=== PATIENT | male | born 1940 ===

== ENCOUNTER 2018-03-09 15:36 | Inpatient (IN) | payer MEDICARE ==
[2018-03-09 15:36] VITALS: BMI 25.9
[2018-03-09] MEDS ORDERED: Sodium Chloride 0.9% 1,000 ML IV STA (16:56)
[2018-03-09] MEDS ORDERED: Piperacillin/Tazobact 3.375 GM in Sodium Chloride 0.9% 100 ML IVPB STA (16:57)
--- NOTE | 2018-03-09 17:05 | ED PDOC ---
HPI: Altered Mental Status Time Seen by Provider: 03/09/18 16:39 Chief Complaint (Nursing): Altered Mental Status Chief Complaint (Provider): Altered Mental Status History Per: EMS, Family () History/Exam Limitations: Clinical Condition Onset/Duration Of Symptoms: Mins (x30) Onset Of Symptoms: Cannot Confirm Onset Current Symptoms Are (Timing): Still Present Additional Complaint(s): 78 year old male with a history of hypertension, Alzheimers, dementia, afib and CHF (this obtained from computer record) presents to the ED with altered mental status. Patient is a poor historian due to medical conditions, history was obtained from . As per , patient insisted on going outside and fought about it until he left. Patient was found by EMS wandering outside and shivering approximately 30 minutes ago. Upon arrival, patient was found with dirty, foul smelling urine in Cheek bag and with a rectal temperature of 96. Patient has no signs of trauma. No further complaints. PMD: Dr. Alyce Fields Past Medical History Reviewed: Historical Data, Nursing Documentation, Vital Signs Vital Signs: Last Vital Signs Temp 96.5 F L 03/09/18 16:41 Pulse 99 H 03/09/18 15:40 Resp 16 03/09/18 15:40 BP 122/64 03/09/18 15:40 Pulse Ox - Medical History PMH: Anemia, Asthma, Atrial Fibrillation, Cardia Arrhythmia (A-FIB), CHF, COPD, HTN, Kidney Stones, Chronic Kidney Disease Other PMH: Prostate cancer 17 years ago - Surgical History Surgical History: Appendectomy, Endoscopy - Family History Family History: States: Unknown Family Hx - Immunization History Hx Tetanus Toxoid Vaccination: No Hx Influenza Vaccination: Yes Hx Pneumococcal Vaccination: Yes - Home Medications Home Medications: Ambulatory Orders Medication Instructions Recorded Allopurinol [Zyloprim] 100 mg PO DAILY 03/09/18 Donepezil [Aricept] 10 mg PO HS 03/09/18 Finasteride [Proscar] 5 mg PO DAILY 03/09/18 Furosemide [Lasix] 20 mg PO DAILY 03/09/18 Losartan [Cozaar] 100 mg PO DAILY 03/09/18 Metoprolol Succinate XL [Toprol XL] 25 mg PO DAILY 03/09/18 Spironolactone [Aldactone] 25 mg PO DAILY 03/09/18 Tamsulosin [Flomax] 0.4 mg PO HS 03/09/18 - Allergies Allergies/Adverse Reactions: Allergies Allergy/AdvReac Type Severity Reaction Status Date / Time No Known Allergies Allergy Verified 12/18/15 10:54 Review of Systems ROS Statement: Except As Marked, All Systems Reviewed And Found Negative Neurological: Positive for: Altered Mental Status Physical Exam - Reviewed Nursing Documentation Reviewed: Yes Vital Signs Reviewed: Yes - Physical Exam Appears: Positive for: No Acute Distress Head Exam: Positive for: ATRAUMATIC, NORMOCEPHALIC Skin: Positive for: Mottled (lower extremities and with hyperpigmentation to the left side of his face - appears chronic) Eye Exam: Positive for: Normal appearance, EOMI, PERRL ENT: Positive for: Normal ENT Inspection Neck: Positive for: Normal Cardiovascular/Chest: Positive for: Regular Rate, Rhythm Respiratory: Positive for: Normal Breath Sounds Gastrointestinal/Abdominal: Positive for: Normal Exam, Soft, Other (cheek w leg bag with dirty smelly urine). Negative for: Tenderness Extremity: Positive for: Normal ROM (moved all 4). Negative for: Pedal Edema, Deformity Neurologic/Psych: Positive for: Alert, Oriented (x1) - Laboratory Results Result Diagrams: 03/09/18 17:10 03/09/18 17:10 - ECG ECG Rhythm: Positive for: Atrial Fibrillation Rate: 88 Pulse Ox Interpretation: Normal - Radiology X-Ray: Read By Radiologist X-Ray Interpretation: No Acute Disease - Progress Condition: Re-examined (multiple times, pt improved somewhat with fluid and antibiotc resuscitation) - Core Measure Core Measure Indicators: Code Sepsis - Critical Care Total Time (In Min): 45 Medical Decision Making Medical Decision Making: Time: 1704 Initial Impression: Altered mental status; rule out sepsis, uti, pneumonia Initial Plan: --VBG --EKG --CMP --Magnesium --Phosphorus --CBC with differentials --PTT --Prothrombin time --CXR --NS --Vancomycin --Zosyn --Blood culture --Urine culture --[place] --UA Time: 1731 --Code sepsis activated. Patient is hypothermic with a lactic acid of 6.4, pt is treated w antibiotics for presumed UTI given cloudy and smelly urine. Time: 1753 --Labs demonstrate low sodium at 123 and elevated white blood cell count. Patient to be admitted to Telemetry for UTI and sepsis. Time: 1802 Chest x-ray: FINDINGS: LUNGS: No active pulmonary disease. PLEURA: No significant pleural effusion identified, no pneumothorax apparent. CARDIOVASCULAR: No radiographic findings to suggest acute or significant cardiovascular disease. Atherosclerotic calcifications identified primarily aortic arch. OSSEOUS STRUCTURES: No significant abnormalities. VISUALIZED UPPER ABDOMEN: Normal. OTHER FINDINGS: None. IMPRESSION: No active disease. Time: 1830 Patient was not given full complement of fluids as per Sepsis protocol due to patients history of CHF. Patients vitals and blood pressure are stable a tthis time. Patients temperature came up within normal range.bp stable. Time: 1839 --Case discussed with Dr. Tavares, who accepts patient for admission. (pts pcp dr fields ) Scribe Attestation: Documented by Marcy Espinoza, acting as a scribe for Jose R Montemayor. Provider Scribe Attestation: All medical record entries made by the Scribe were at my direction and personally dictated by me. I have reviewed the chart and agree that the record accurately reflects my personal performance of the history, physical exam, medical decision making, and the department course for this patient. I have also personally directed, reviewed, and agree with the discharge instructions and disposition. Disposition - Clinical Impression Clinical Impression: Altered mental status, Sepsis secondary to UTI - Patient ED Disposition Is Patient to be Admitted: Yes - Disposition Disposition Time: 18:40 Condition: SERIOUS
[2018-03-09 17:24] LABS: HEMOGLOBIN 13.3 g/dL (12.0-18.0); LYMPH # 0.1 K/uL (1.0-4.3); LYMPH % 0.8 % (20.0-40.0); MEAN CELL VOLUME 91.4 fl (80.0-94.0); MEAN CORPUSCULAR HEMOGLOBIN 30.3 pg (27.0-31.0); MEAN CORPUSCULAR HGB CONC 33.1 g/dL (33.0-37.0); MEAN PLATELET VOLUME 7.7 fl (7.2-11.7); MONO # 0.6 K/uL (0.0-0.8); MONO % 3.3 % (0.0-10.0); NEUT # 16.5 K/uL (1.8-7.0); NEUT % 95.9 % (50.0-75.0); PLATELET COUNT 285 K/uL (130-400); RBC 4.41 Mil/uL (4.40-5.90); RED CELL DISTRIBUTION WIDTH 13.8 % (11.5-14.5); WHITE BLOOD COUNT 17.2 K/uL (4.8-10.8)
[2018-03-09] MEDS ORDERED: Vancomycin 1 g Inj ONE (17:28)
[2018-03-09] MEDS ORDERED: Piperacillin/Tazobact 3.375 gm Inj IVPB ONE (17:28)
[2018-03-09 17:30] LABS: VENOUS BLOOD GAS BASE EXCESS -8.8 mmol/L (0.0-2.0); VENOUS BLOOD GAS PCO2 34 mmHg (40-60); VENOUS BLOOD GAS PO2 42 mm/Hg (30-55)
[2018-03-09 17:44] LABS: ALB/GLOB RATIO 0.9 (1.0-2.1); ALBUMIN 3.3 g/dL (3.5-5.0); ALT/SGPT 17 U/L (21-72); AST/SGOT 49 U/L (17-59); BLOOD UREA NITROGEN 30 mg/dl (9-20); CALCIUM 9.5 mg/dL (8.4-10.2); GFR NON-AFRICAN AMERICAN > 60
--- NOTE | 2018-03-09 18:06 | RAD ---
Date of service: 03/09/2018 HISTORY: Sepsis Patient COMPARISON: No prior. FINDINGS: LUNGS: No active pulmonary disease. PLEURA: No significant pleural effusion identified, no pneumothorax apparent. CARDIOVASCULAR: No radiographic findings to suggest acute or significant cardiovascular disease. Atherosclerotic calcifications identified primarily aortic arch. OSSEOUS STRUCTURES: No significant abnormalities. VISUALIZED UPPER ABDOMEN: Normal. OTHER FINDINGS: None. IMPRESSION: No active disease.
[2018-03-09 18:07] LABS: INR 1.3; PROTHROMBIN TIME 14.3 Seconds (9.8-13.1)
[2018-03-09 18:08] LABS: PARTIAL THROMBOPLASTIN TIME 28.5 Seconds (25.6-37.1)
[2018-03-09 18:25] LABS: URINE BACTERIA MANY (<OCC); URINE BILIRUBIN NEGATIVE (NEGATIVE); URINE BLOOD MODERATE (NEGATIVE); URINE CLARITY TURBID (Clear); URINE COLOR YELLOW (YELLOW); URINE GLUCOSE (UA) NEG (NEGATIVE); URINE LEUKOCYTE ESTERASE LARGE Leu/uL (Negative); URINE PROTEIN 100 mg/dL (NEGATIVE); WBC CLUMPS OCC /hpf
[2018-03-09 19:25] LABS: BANDS 4 % (0-2); HYPOCHROMIC SLIGHT; LYMPHOCYTE 3 % (20-50); MONOCYTE 5 % (0-10); NEUTROPHIL 88 % (42-75); PLATELET ESTIMATE NORMAL (NORMAL); TOTAL CELLS COUNTED 100
[2018-03-09 19:26] LABS: TOXIC GRANULATION PRESENT
--- NOTE | 2018-03-09 19:35 | CP.PCM.HP ---
<Speedy Denson - Last Filed: 03/09/18 20:22> History of Present Illness - History of Present Illness History of Present Illness: History obtained from prior visits due to patient's current AMS. 78 yo M with pmhx of Alzheimer's dementia, HTN, CHF (diastolic), Afib, nephrolithiasis, prostate cancer s/p brachytherapy, IgA nephropathy, and gout presents to the ED with AMS. He was found wandering on the streets. Unaware of person or place or time. Pt states he is at "[address]" and unaware of current building. PMD: Dr. Alyce Cole Surg: Appy Fam: none NKDA Present on Admission - Present on Admission Any Indicators Present on Admission: No Urinary Catheter: No Review of Systems - Review of Systems Systems not reviewed;Unavailable: Altered Mental Status Past Patient History - Infectious Disease Hx of Infectious Diseases: None - Past Medical History & Family History Past Medical History?: Yes - Past Social History Smoking Status: Never Smoked Home Situation {Lives}: With Family - CARDIAC Hx Atrial Fibrillation: Yes Hx Cardia Arrhythmia: Yes (A-FIB) Hx Congestive Heart Failure: Yes Hx Hypertension: Yes - PULMONARY Hx Asthma: Yes Hx Chronic Obstructive Pulmonary Disease (COPD): Yes - NEUROLOGICAL Hx Neurological Disorder: No - HEENT Hx HEENT Problems: Yes Hx Glaucoma: Yes Other/Comment: Wears eyeglasses for reading - RENAL Hx Chronic Kidney Disease: Yes Hx Kidney Stones: Yes - ENDOCRINE/METABOLIC Hx Endocrine Disorders: No - HEMATOLOGICAL/ONCOLOGICAL Hx Anemia: Yes - INTEGUMENTARY Hx Dermatological Problems: Yes Other/Comment: facial discoloration. patient states " rashaun" - MUSCULOSKELETAL/RHEUMATOLOGICAL Hx Musculoskeletal Disorders: Yes - GASTROINTESTINAL Hx Gastrointestinal Disorders: No - GENITOURINARY/GYNECOLOGICAL Hx Genitourinary Disorders: Yes Hx Prostate Cancer: Yes (h/o.12 years ago seed implants) - PSYCHIATRIC Hx Psychophysiologic Disorder: No Hx Substance Use: No - SURGICAL HISTORY Hx Appendectomy: Yes - ANESTHESIA Hx Anesthesia: Yes Hx Anesthesia Reactions: No Hx Malignant Hyperthermia: No Meds Allergies/Adverse Reactions: Allergies Allergy/AdvReac Type Severity Reaction Status Date / Time No Known Allergies Allergy Verified 12/18/15 10:54 Physical Exam - Constitutional Appears: Confused - Eye Exam Eye Exam: EOMI - ENT Exam ENT Exam: Mucous Membranes Moist - Respiratory Exam Respiratory Exam: Clear to Auscultation Bilateral, NORMAL BREATHING PATTERN. absent: Wheezes - Cardiovascular Exam Cardiovascular Exam: REGULAR RHYTHM, +S1, +S2 - GI/Abdominal Exam GI & Abdominal Exam: Normal Bowel Sounds, Soft. absent: Tenderness - Extremities Exam Extremities exam: Negative for: calf tenderness - Neurological Exam Neurological exam: Alert, Altered Results - Vital Signs Recent Vital Signs: Last Vital Signs Temp 97.5 F L 03/09/18 18:30 Pulse 88 03/09/18 19:31 Resp 19 03/09/18 18:30 BP 132/70 03/09/18 18:30 Pulse Ox 100 03/09/18 18:30 - Labs Result Diagrams: 03/09/18 17:10 03/09/18 17:10 Labs: Laboratory Results - last 24 hr 03/09/18 03/09/18 03/09/18 17:10 17:10 17:20 WBC 17.2 H RBC 4.41 Hgb 13.3 Hct 40.3 MCV 91.4 MCH 30.3 MCHC 33.1 RDW 13.8 Plt Count 285 MPV 7.7 Neut % (Auto) 95.9 H Lymph % (Auto) 0.8 L [place] % (Auto) 3.3 Eos % (Auto) 0.0 Baso % (Auto) 0.0 Neut # (Auto) 16.5 H Lymph # (Auto) 0.1 L [place] # (Auto) 0.6 Eos # (Auto) 0.0 Baso # (Auto) 0.0 Neutrophils % (Manual) 88 H Band Neutrophils % 4 H Lymphocytes % (Manual) 3 L Monocytes % (Manual) 5 Toxic Granulation Present Platelet Estimate Normal Hypochromasia (manual) Slight PT 14.3 H INR 1.3 APTT 28.5 pO2 VBG pH VBG pCO2 VBG HCO3 VBG Total CO2 VBG O2 Sat (Calc) VBG Base Excess VBG Potassium Glucose Lactate FiO2 Crit Value Called To Crit Value Called By Crit Value Read Back Blood Gas Notified Time Sodium 125 L Potassium 3.9 Chloride 97 L Carbon Dioxide 16 L Anion Gap 16 BUN 30 H Creatinine 1.1 Est GFR ( Amer) > 60 Est GFR (Non-Af Amer) > 60 Random Glucose 194 H Calcium 9.5 Phosphorus 4.8 H Magnesium 2.0 Total Bilirubin 1.2 AST 49 ALT 17 L Alkaline Phosphatase 111 Total Protein 7.3 Albumin 3.3 L Globulin 3.9 Albumin/Globulin Ratio 0.9 L Venous Blood Potassium Urine Color Urine Clarity Urine pH Ur Specific [place] Urine Protein Urine Glucose (UA) Urine Ketones Urine Blood Urine Nitrate Urine Bilirubin Urine Urobilinogen Ur Leukocyte Esterase Urine RBC (Auto) Urine WBC Clumps (Auto) Urine Microscopic WBC Urine Bacteria 03/09/18 03/09/18 17:20 17:26 WBC RBC Hgb Hct MCV MCH MCHC RDW Plt Count MPV Neut % (Auto) Lymph % (Auto) [place] % (Auto) Eos % (Auto) Baso % (Auto) Neut # (Auto) Lymph # (Auto) [place] # (Auto) Eos # (Auto) Baso # (Auto) Neutrophils % (Manual) Band Neutrophils % Lymphocytes % (Manual) Monocytes % (Manual) Toxic Granulation Platelet Estimate Hypochromasia (manual) PT INR APTT pO2 42 VBG pH 7.30 L VBG pCO2 34 L VBG HCO3 17.4 VBG Total CO2 17.7 L VBG O2 Sat (Calc) 74.5 H VBG Base Excess -8.8 L VBG Potassium 3.9 Glucose 196 H Lactate 6.4 H* FiO2 21.0 Crit Value Called To Jose R sherman md Crit Value Called By 6075 Crit Value Read Back Y Blood Gas Notified Time 1730 Sodium 128.0 L Potassium Chloride 98.0 Carbon Dioxide Anion Gap BUN Creatinine Est GFR ( Amer) Est GFR (Non-Af Amer) Random Glucose Calcium Phosphorus Magnesium Total Bilirubin AST ALT Alkaline Phosphatase Total Protein Albumin Globulin Albumin/Globulin Ratio Venous Blood Potassium 3.9 Urine Color Yellow Urine Clarity Turbid Urine pH 7.0 Ur Specific [place] 1.012 Urine Protein 100 Urine Glucose (UA) Neg Urine Ketones Negative Urine Blood Moderate Urine Nitrate Negative Urine Bilirubin Negative Urine Urobilinogen 2.0 Ur Leukocyte Esterase Large Urine RBC (Auto) 34 H Urine WBC Clumps (Auto) Occ H Urine Microscopic WBC 396 H Urine Bacteria Many H Assessment & Plan - Assessment and Plan (Free Text) Assessment: 78 yo M with pmhx of Alzheimer's dementia, HTN, CHF (diastolic), Afib, nephrolithiasis, prostate cancer s/p brachytherapy, IgA nephropathy and gout admitted for sepsis secondary to UTI. Plan: Sepsis Admit to tele radiation monitor s/p: Vanc/Zosyn WBC: 17.2 Lactate: 6.4 UA: RBC and WBC; Leuk esterase: large IVABX: Cefepime, Zosyn IVF: NS at 80 mls gentle hydration 2/2 CHF f/u VBG, Blood and urine culture f/u AM labs AMS CT HEAD: pending official Alzheimer's dementia Catheter inserted c/w home med f/u AM labs including TSH Hyponatremia Na: 125 IVF NS f/u am labs CHF c/w lasix Pro BNP 01/31/2018: 5210 HTN c/w losartan, metoprolol Gout c/w allopurinol Hx prostate cancer c/w finasteride, tamulosin Catheter insertion DVT prophylaxis Lovenox Case and plan d/w Dr. Chaitanya Denson MD PGY2 <Iggy Tavares D - Last Filed: 03/10/18 09:29> Results - Vital Signs Recent Vital Signs: Last Vital Signs Temp 97.5 F L 03/10/18 07:53 Pulse 65 03/10/18 07:53 Resp 18 03/10/18 07:53 BP 103/69 03/10/18 07:53 Pulse Ox 100 03/10/18 07:53 - Labs Result Diagrams: 03/10/18 04:25 03/10/18 04:25 Labs: Laboratory Results - last 24 hr 03/09/18 03/09/18 03/09/18 17:10 17:10 17:20 WBC 17.2 H RBC 4.41 Hgb 13.3 Hct 40.3 MCV 91.4 MCH 30.3 MCHC 33.1 RDW 13.8 Plt Count 285 MPV 7.7 Neut % (Auto) 95.9 H Lymph % (Auto) 0.8 L [place] % (Auto) 3.3 Eos % (Auto) 0.0 Baso % (Auto) 0.0 Neut # (Auto) 16.5 H Lymph # (Auto) 0.1 L [place] # (Auto) 0.6 Eos # (Auto) 0.0 Baso # (Auto) 0.0 Neutrophils % (Manual) 88 H Band Neutrophils % 4 H Lymphocytes % (Manual) 3 L Monocytes % (Manual) 5 Toxic Granulation Present Platelet Estimate Normal Large Platelets Hypochromasia (manual) Slight Poikilocytosis (manual Anisocytosis (manual) Ovalocytes [place] Cells PT 14.3 H INR 1.3 APTT 28.5 pO2 VBG pH VBG pCO2 VBG HCO3 VBG Total CO2 VBG O2 Sat (Calc) VBG Base Excess VBG Potassium Glucose Lactate FiO2 Crit Value Called To Crit Value Called By Crit Value Read Back Blood Gas Notified Time Sodium 125 L Potassium 3.9 Chloride 97 L Carbon Dioxide 16 L Anion Gap 16 BUN 30 H Creatinine 1.1 Est GFR ( Amer) > 60 Est GFR (Non-Af Amer) > 60 Random Glucose 194 H Calcium 9.5 Phosphorus 4.8 H Magnesium 2.0 Total Bilirubin 1.2 AST 49 ALT 17 L Alkaline Phosphatase 111 Total Protein 7.3 Albumin 3.3 L Globulin 3.9 Albumin/Globulin Ratio 0.9 L TSH 3rd Generation Venous Blood Potassium Urine Color Urine Clarity Urine pH Ur Specific [place] Urine Protein Urine Glucose (UA) Urine Ketones Urine Blood Urine Nitrate Urine Bilirubin Urine Urobilinogen Ur Leukocyte Esterase Urine RBC (Auto) Urine WBC Clumps (Auto) Urine Microscopic WBC Urine Bacteria 03/09/18 03/09/18 03/09/18 17:20 17:26 20:26 WBC RBC Hgb Hct MCV MCH MCHC RDW Plt Count MPV Neut % (Auto) Lymph % (Auto) [place] % (Auto) Eos % (Auto) Baso % (Auto) Neut # (Auto) Lymph # (Auto) [place] # (Auto) Eos # (Auto) Baso # (Auto) Neutrophils % (Manual) Band Neutrophils % Lymphocytes % (Manual) Monocytes % (Manual) Toxic Granulation Platelet Estimate Large Platelets Hypochromasia (manual) Poikilocytosis (manual Anisocytosis (manual) Ovalocytes [place] Cells PT INR APTT pO2 42 22 L VBG pH 7.30 L 7.34 VBG pCO2 34 L 39 L VBG HCO3 17.4 19.7 VBG Total CO2 17.7 L 22.2 VBG O2 Sat (Calc) 74.5 H 33.8 L VBG Base Excess -8.8 L -4.4 L VBG Potassium 3.9 4.1 Glucose 196 H 122 H Lactate 6.4 H* 2.2 H FiO2 21.0 21.0 Crit Value Called To Jose R sherman md Crit Value Called By 6075 Crit Value Read Back Y Blood Gas Notified Time 1730 Sodium 128.0 L 130.0 L Potassium Chloride 98.0 102.0 Carbon Dioxide Anion Gap BUN Creatinine Est GFR ( Amer) Est GFR (Non-Af Amer) Random Glucose Calcium Phosphorus Magnesium Total Bilirubin AST ALT Alkaline Phosphatase Total Protein Albumin Globulin Albumin/Globulin Ratio TSH 3rd Generation Venous Blood Potassium 3.9 4.1 Urine Color Yellow Urine Clarity Turbid Urine pH 7.0 Ur Specific [place] 1.012 Urine Protein 100 Urine Glucose (UA) Neg Urine Ketones Negative Urine Blood Moderate Urine Nitrate Negative Urine Bilirubin Negative Urine Urobilinogen 2.0 Ur Leukocyte Esterase Large Urine RBC (Auto) 34 H Urine WBC Clumps (Auto) Occ H Urine Microscopic WBC 396 H Urine Bacteria Many H 03/10/18 03/10/18 04:25 04:25 WBC 13.5 H RBC 4.03 L Hgb 12.5 Hct 36.5 MCV 90.6 MCH 30.9 MCHC 34.1 RDW 13.9 Plt Count 290 MPV 7.9 Neut % (Auto) 90.4 H Lymph % (Auto) 4.2 L [place] % (Auto) 5.1 Eos % (Auto) 0.1 Baso % (Auto) 0.2 Neut # (Auto) 12.2 H Lymph # (Auto) 0.6 L [place] # (Auto) 0.7 Eos # (Auto) 0.0 Baso # (Auto) 0.0 Neutrophils % (Manual) 91 H Band Neutrophils % Lymphocytes % (Manual) 5 L Monocytes % (Manual) 4 Toxic Granulation Platelet Estimate Normal Large Platelets Present Hypochromasia (manual) Poikilocytosis (manual Slight Anisocytosis (manual) Slight Ovalocytes Slight [place] Cells Slight PT INR APTT pO2 VBG pH VBG pCO2 VBG HCO3 VBG Total CO2 VBG O2 Sat (Calc) VBG Base Excess VBG Potassium Glucose Lactate FiO2 Crit Value Called To Crit Value Called By Crit Value Read Back Blood Gas Notified Time Sodium 134 Potassium 4.2 Chloride 106 Carbon Dioxide 22 Anion Gap 10 BUN 25 H Creatinine 1.0 Est GFR ( Amer) > 60 Est GFR (Non-Af Amer) > 60 Random Glucose 104 Calcium 8.9 Phosphorus Magnesium Total Bilirubin AST ALT Alkaline Phosphatase Total Protein Albumin Globulin Albumin/Globulin Ratio TSH 3rd Generation 0.85 Venous Blood Potassium Urine Color Urine Clarity Urine pH Ur Specific [place] Urine Protein Urine Glucose (UA) Urine Ketones Urine Blood Urine Nitrate Urine Bilirubin Urine Urobilinogen Ur Leukocyte Esterase Urine RBC (Auto) Urine WBC Clumps (Auto) Urine Microscopic WBC Urine Bacteria Attending/Attestation - Attestation I have personally seen and examined this patient.: Yes I have fully participated in the care of the patient.: Yes I have reviewed all pertinent clinical information: Yes Notes (Text): 03/10/18 09:28 Patient seen and examined with resident. Case discussed and agreed with assessment and plan of management.
[2018-03-09] MEDS: Sodium Chloride 0.9% 1,000 ML IV SCH (19:54)
[2018-03-09 20:30] LABS: VENOUS BLOOD GAS BASE EXCESS -4.4 mmol/L (0.0-2.0); VENOUS BLOOD GAS PCO2 39 mmHg (40-60); VENOUS BLOOD GAS PO2 22 mm/Hg (30-55); VENOUS BLOOD PH 7.34 (7.32-7.43)
[2018-03-09] MEDS ORDERED: Piperacillin/Tazobact 3.375 GM in Sodium Chloride 0.9% 100 ML IVPB SCH (22:00)
[2018-03-09] MEDS: Cefepime 1 GM in Sodium Chloride 0.9% 100 ML IVPB SCH (22:14)
[2018-03-10] MEDS: Piperacillin/Tazobact 3.375 GM in Sodium Chloride 0.9% 100 ML IVPB SCH ×2 (00:38→05:37)
[2018-03-10 05:52] LABS: BASO % 0.2 % (0.0-2.0); EOS % 0.1 % (0.0-4.0); HEMOGLOBIN 12.5 g/dL (12.0-18.0); LYMPH # 0.6 K/uL (1.0-4.3); LYMPH % 4.2 % (20.0-40.0); MEAN CELL VOLUME 90.6 fl (80.0-94.0); MEAN CORPUSCULAR HEMOGLOBIN 30.9 pg (27.0-31.0); MEAN CORPUSCULAR HGB CONC 34.1 g/dL (33.0-37.0); MEAN PLATELET VOLUME 7.9 fl (7.2-11.7); MONO # 0.7 K/uL (0.0-0.8); MONO % 5.1 % (0.0-10.0); NEUT # 12.2 K/uL (1.8-7.0); NEUT % 90.4 % (50.0-75.0); NRBC % 0.1 % (0.0-0.0); PLATELET COUNT 290 K/uL (130-400); RBC 4.03 Mil/uL (4.40-5.90); RED CELL DISTRIBUTION WIDTH 13.9 % (11.5-14.5); WHITE BLOOD COUNT 13.5 K/uL (4.8-10.8)
[2018-03-10 06:00] LABS: BLOOD UREA NITROGEN 25 mg/dl (9-20); CALCIUM 8.9 mg/dL (8.4-10.2); GFR NON-AFRICAN AMERICAN > 60
[2018-03-10 08:10] LABS: LYMPHOCYTE 5 % (20-50); MONOCYTE 4 % (0-10); NEUTROPHIL 91 % (42-75); PLATELET ESTIMATE NORMAL (NORMAL); TOTAL CELLS COUNTED 100
[2018-03-10 08:11] LABS: ANISOCYTOSIS SLIGHT; BURR CELLS SLIGHT; LARGE PLATELETS PRESENT; OVALOCYTES SLIGHT; POIKILOCYTOSIS SLIGHT
--- NOTE | 2018-03-10 09:46 | CP.PCM.PN ---
<Judie Phan - Last Filed: 03/10/18 10:49> Subjective - Date & Time of Evaluation Date of Evaluation: 03/10/18 Time of Evaluation: 08:45 - Subjective Subjective: Pt seen/evaluated at bedside, laying in bed without distress. Pt with reported baseline dementia, answering questions but nor appropriately. When asked "what happened yesterday," pt replies "nothing important." Knows he is in a hospital, but not which. Urine draining in cheek at bedside - blood tinged. Denies chest pain or SOB. Objective - Vital Signs/Intake and Output Vital Signs (last 24 hours): Temp Pulse Resp BP Pulse Ox 97.5 F L 65 18 103/69 100 03/10/18 07:53 03/10/18 07:53 03/10/18 07:53 03/10/18 07:53 03/10/18 07:53 Intake and Output: 03/10/18 03/10/18 06:59 18:59 Intake Total 1260 Output Total 2000 Balance -740 - Medications Medications: Current Medications Allopurinol (Zyloprim) 100 mg PO DAILY [facility] Donepezil HCl (Aricept) 10 mg PO HS [facility] Last Admin: 03/09/18 22:11 Dose: 10 mg Enoxaparin Sodium (Lovenox) 40 mg SC DAILY [facility]; Protocol Finasteride (Proscar) 5 mg PO DAILY [facility] Furosemide (Lasix) 20 mg PO DAILY [facility] Sodium Chloride (Sodium Chloride 0.9%) 1,000 mls @ 80 mls/hr IV .[id number] [facility] Last Admin: 03/09/18 19:54 Dose: 80 mls/hr Cefepime HCl 1 gm/ Sodium (Chloride) 100 mls @ 100 mls/hr IVPB Q12 [facility]; Protocol Last Admin: 03/09/18 22:14 Dose: 100 mls/hr Losartan Potassium (Cozaar) 100 mg PO DAILY [facility] Metoprolol Succinate (Toprol Xl) 25 mg PO DAILY [facility] Spironolactone (Aldactone) 25 mg PO DAILY [facility] Tamsulosin HCl (Flomax) 0.4 mg PO [facility] Last Admin: 03/09/18 22:44 Dose: 0.4 mg - Labs Labs: 03/10/18 04:25 03/10/18 04:25 PT 14.3 Seconds (9.8-13.1) H 03/09/18 17:20 INR 1.3 03/09/18 17:20 APTT 28.5 Seconds (25.6-37.1) 03/09/18 17:20 - Constitutional Appears: No Acute Distress - ENT Exam ENT Exam: Mucous Membranes Moist - Respiratory Exam Respiratory Exam: Clear to Ausculation Bilateral, NORMAL BREATHING PATTERN - Cardiovascular Exam Cardiovascular Exam: REGULAR RHYTHM, +S1, +S2 - GI/Abdominal Exam GI & Abdominal Exam: Soft, Normal Bowel Sounds - Extremities Exam Extremities Exam: absent: Calf Tenderness, Pedal Edema - Neurological Exam Neurological Exam: Alert. absent: Oriented x3 - Skin Skin Exam: Warm - Additional Findings Additional findings: + cheek with blood tinged urine Assessment and Plan - Assessment and Plan (Free Text) Assessment: 78 yo M with pmhx of Alzheimer's dementia, HTN, diastolic CHF, A-fib, nephrolithiasis, prostate cancer s/p brachytherapy, IgA nephropathy and gout admitted for sepsis secondary to UTI (met sepsis criteria with elevated lactate, WBC count, suspected source). UA showed RBC and WBC; large leuk esterase. Received 1 dose vancomycin and zosyn in ED; then started on cefepime; will need IV cefepime 1gm Q12 hrs x 7 days. Plan: Urinary Tract Infection, Sepsis - Leukocytosis improving, down to 13.5 from 17.2 on admission - Lactate improving, down to 2.2 from 6.4 on admission - UA: RBC and WBC; Leuk esterase: large - Currently day 2 of cefepime,1g IV Q12hrs ; will need IV cefepime 1gm Q12 hrs x 7 days - IVF: NS at 80 mls gentle hydration 2/2 CHF - F/u blood and urine cultures AMS, likely secondary to baseline dementia - CT head: pending official - Alzheimer's dementia - Continue with home med - TSH wnl Hyponatremia - Resolved on this am labs, Na 134 CHF - Continue with lasix - Pro BNP 01/31/2018: 5210 HTN - Well controlled - Continue with losartan, metoprolol Gout - Continue with allopurinol Hx prostate cancer - Continue with finasteride, tamulosin - Has catheder, changed in ED DVT prophylaxis - Hold lovenox due to hematuria, likely from traumatic cheek change - SCDs <Emy Parker - Last Filed: 03/10/18 16:08> Objective - Vital Signs/Intake and Output Vital Signs (last 24 hours): Temp Pulse Resp BP Pulse Ox 98.1 F 60 20 99/56 L 99 03/10/18 15:47 03/10/18 15:47 03/10/18 15:47 03/10/18 15:47 03/10/18 15:47 Intake and Output: 03/10/18 03/10/18 06:59 18:59 Intake Total 1260 Output Total 1999 Balance -740 - Medications Medications: Current Medications Allopurinol (Zyloprim) 100 mg PO DAILY [facility] Last Admin: 03/10/18 10:34 Dose: 100 mg Donepezil HCl (Aricept) 10 mg PO HS [facility] Last Admin: 03/09/18 22:11 Dose: 10 mg Enoxaparin Sodium (Lovenox) 40 mg SC DAILY [facility]; Protocol Last Admin: 03/10/18 11:17 Dose: Not Given Finasteride (Proscar) 5 mg PO DAILY [facility] Last Admin: 03/10/18 10:33 Dose: 5 mg Furosemide (Lasix) 20 mg PO DAILY [facility] Last Admin: 03/10/18 10:34 Dose: 20 mg Sodium Chloride (Sodium Chloride 0.9%) 1,000 mls @ 80 mls/hr IV .[id number] [facility] Last Admin: 03/09/18 19:54 Dose: 80 mls/hr Cefepime HCl 2 gm/ Sodium (Chloride) 100 mls @ 100 mls/hr IVPB Q12 [facility]; Protocol Losartan Potassium (Cozaar) 50 mg PO DAILY [facility] Metoprolol Succinate (Toprol Xl) 25 mg PO DAILY [facility] Last Admin: 03/10/18 10:33 Dose: Not Given Spironolactone (Aldactone) 25 mg PO DAILY [facility] Last Admin: 03/10/18 10:33 Dose: 25 mg Tamsulosin HCl (Flomax) 0.4 mg PO HS [facility] Last Admin: 03/09/18 22:44 Dose: 0.4 mg - Labs Labs: 03/10/18 04:25 03/10/18 04:25 PT 14.3 Seconds (9.8-13.1) H 03/09/18 17:20 INR 1.3 03/09/18 17:20 APTT 28.5 Seconds (25.6-37.1) 03/09/18 17:20 Attending/Attestation - Attestation I have personally seen and examined this patient.: Yes I have fully participated in the care of the patient.: Yes I have reviewed all pertinent clinical information, including history, physical exam and plan: Yes Notes (Text): Sepsis due to UTI - await cultures - increase Cefepime to 2 grams IVPB q 12 HTN - cont Toprol, Spirinolactone, Lasix , decrease Losartan due to low normal BP Discussed test results and treatment plan with and daughter who were at bedside
[2018-03-10] MEDS: Metoprolol Succinate 25 mg XL Tab PO SCH (10:33)
[2018-03-10] MEDS: Enoxaparin 40 mg Syringe SC SCH (11:17)
--- NOTE | 2018-03-10 12:30 | CT ---
Date of service: 03/09/2018 PROCEDURE: CT HEAD WITHOUT CONTRAST. HISTORY: sepsis COMPARISON: None available. TECHNIQUE: Axial computed tomography images were obtained through the head/brain without intravenous contrast. Radiation dose: Total exam DLP = 839.02 mGy-cm. This CT exam was performed using one or more of the following dose reduction techniques: Automated exposure control, adjustment of the mA and/or kV according to patient size, and/or use of iterative reconstruction technique. FINDINGS: HEMORRHAGE: No intracranial hemorrhage. BRAIN: Good corticomedullary differentiation is seen. Proportional, diffuse expansion of the ventriculosulcal and cisternal spaces is appreciated with white matter lucency compatible with diffuse cerebral atrophy and chronic microangiopathy. Lucencies identified at the inferior margins of the bilateral basal ganglia may reflect a left dilated perivascular space and a right chronic lacune though both findings could reflect dilated perivascular spaces. No suspicious extra-axial fluid collection is identified and the midline brain anatomy appears grossly nonfocal as imaged. There is no mass effect throughout. VENTRICLES: Unremarkable. No hydrocephalus. CALVARIUM: Unremarkable. PARANASAL SINUSES: Unremarkable as visualized. No significant inflammatory changes. MASTOID AIR CELLS: Unremarkable as visualized. No inflammatory changes. OTHER FINDINGS: None. IMPRESSION: No definite acute intracranial findings by standard CT criteria. Age-related degenerative findings are appreciated as discussed above and appear age-appropriate. Dilated perivascular spaces versus chronic lacunes are identified in the bilateral basal ganglia.
[2018-03-10] MEDS: Cefepime 1 GM in Sodium Chloride 0.9% 100 ML IVPB SCH (12:34)
[2018-03-10] MEDS: Sodium Chloride 0.9% 1,000 ML IV SCH ×2 (17:16→21:00)
--- NOTE | 2018-03-10 20:53 | CARD ---
APPROVED REPORT Date of service: 03/09/2018 EKG Measurement Heart [id number] <Conclusion> Atrial fibrillation ST & T wave abnormality, consider inferior ischemia ST & T wave abnormality, consider anterolateral ischemia Abnormal ECG
[2018-03-10] MEDS: Cefepime 2 GM in Sodium Chloride 0.9% 100 ML IVPB SCH (21:01)
[2018-03-11] MEDS: Sodium Chloride 0.9% 1,000 ML IV SCH ×2 (07:03→09:08)
[2018-03-11 07:14] LABS: BASO % 0.3 % (0.0-2.0); EOS % 0.1 % (0.0-4.0); HEMOGLOBIN 12.1 g/dL (12.0-18.0); LYMPH # 0.6 K/uL (1.0-4.3); MEAN CORPUSCULAR HEMOGLOBIN 30.7 pg (27.0-31.0); MEAN CORPUSCULAR HGB CONC 33.8 g/dL (33.0-37.0); MEAN PLATELET VOLUME 7.4 fl (7.2-11.7); MONO # 0.6 K/uL (0.0-0.8); NEUT # 10.5 K/uL (1.8-7.0); NEUT % 89.6 % (50.0-75.0); RBC 3.94 Mil/uL (4.40-5.90); WHITE BLOOD COUNT 11.7 K/uL (4.8-10.8)
[2018-03-11 07:50] LABS: BLOOD UREA NITROGEN 20 mg/dl (9-20); CALCIUM 8.5 mg/dL (8.4-10.2); GFR NON-AFRICAN AMERICAN > 60
--- NOTE | 2018-03-11 08:55 | CP.PCM.PN ---
<KitgiaseveroNarayana - Last Filed: 03/11/18 08:55> Subjective - Date & Time of Evaluation Date of Evaluation: 03/11/18 Time of Evaluation: 08:25 - Subjective Subjective: Pt seen/examined at bedside this am; no acute events overnight; hematuria resolving as urine is more donna colored now. Pt remains at baseline level of mentation, alert, oriented x2. Objective - Vital Signs/Intake and Output Vital Signs (last 24 hours): Temp Pulse Resp BP Pulse Ox 97.4 F L 66 18 133/78 99 03/11/18 08:11 03/11/18 08:11 03/11/18 08:11 03/11/18 08:11 03/11/18 08:11 Intake and Output: 03/11/18 03/11/18 06:59 18:59 Output Total 1200 Balance -1200 - Medications Medications: Current Medications Allopurinol (Zyloprim) 100 mg PO DAILY [facility] Last Admin: 03/10/18 10:34 Dose: 100 mg Donepezil HCl (Aricept) 10 mg PO [facility] Last Admin: 03/10/18 21:02 Dose: 10 mg Enoxaparin Sodium (Lovenox) 40 mg SC DAILY [facility]; Protocol Last Admin: 03/10/18 11:17 Dose: Not Given Finasteride (Proscar) 5 mg PO DAILY [facility] Last Admin: 03/10/18 10:33 Dose: 5 mg Furosemide (Lasix) 20 mg PO DAILY [facility] Last Admin: 03/10/18 10:34 Dose: 20 mg Sodium Chloride (Sodium Chloride 0.9%) 1,000 mls @ 80 mls/hr IV .[id number] [facility] Last Admin: 03/11/18 07:03 Dose: 80 mls/hr Cefepime HCl 2 gm/ Sodium (Chloride) 100 mls @ 100 mls/hr IVPB Q12 [facility]; Protocol Last Admin: 03/10/18 21:01 Dose: 100 mls/hr Losartan Potassium (Cozaar) 50 mg PO DAILY [facility] Metoprolol Succinate (Toprol Xl) 25 mg PO DAILY [facility] Last Admin: 03/10/18 10:33 Dose: Not Given Spironolactone (Aldactone) 25 mg PO DAILY [facility] Last Admin: 03/10/18 10:33 Dose: 25 mg Tamsulosin HCl (Flomax) 0.4 mg PO [facility] Last Admin: 03/10/18 21:02 Dose: 0.4 mg - Labs Labs: 03/11/18 04:00 03/11/18 06:45 PT 14.3 Seconds (9.8-13.1) H 03/09/18 17:20 INR 1.3 03/09/18 17:20 APTT 28.5 Seconds (25.6-37.1) 03/09/18 17:20 - Constitutional Appears: No Acute Distress - Respiratory Exam Respiratory Exam: Clear to Ausculation Bilateral, NORMAL BREATHING PATTERN - Cardiovascular Exam Cardiovascular Exam: REGULAR RHYTHM, +S1, +S2 - GI/Abdominal Exam GI & Abdominal Exam: Soft - Extremities Exam Extremities Exam: absent: Calf Tenderness, Pedal Edema - Neurological Exam Neurological Exam: Alert - Skin Skin Exam: Dry, Warm - Additional Findings Additional findings: + cheek w/ dark donna urine Assessment and Plan - Assessment and Plan (Free Text) Assessment: 78 yo M with pmhx of Alzheimer's dementia, HTN, diastolic CHF, A-fib, nephrolithiasis, prostate cancer s/p brachytherapy, IgA nephropathy and gout admitted for sepsis secondary to UTI (met sepsis criteria with elevated lactate, WBC count, suspected source). UA showed RBC and WBC; large leuk esterase - pending final urine culture. CT head: No definite acute intracranial findings by standard CT criteria. Age- related degenerative findings are appreciated as discussed above and appear age- appropriate. Dilated patrizia-vascular spaces versus chronic lacunes in bilateral basal ganglia. Received 1 dose vancomycin and zosyn in ED; then started on IV cefepime; dose increased to 2 gm Q12. Plan: Urinary Tract Infection, Sepsis - Leukocytosis improving, down to 11.7 from 17.2 on admission - UA: RBC and WBC; Leuk esterase: large ; pending final urine culture - Currently day 3 of cefepime; dose changed to 2g IV Q12hrs from 1 g Q12hrs - IVF: NS at 80 mls gentle hydration 2/2 CHF - F/u blood and urine cultures AMS, likely secondary to baseline dementia - CT head - no definite acute findings; age related changes - Alzheimer's dementia - Continue with home med - TSH wnl CHF - Continue with lasix - Pro BNP 01/31/2018: 5210 HTN - Well controlled - Continue with losartan, metoprolol, spironolactone Gout - Continue with allopurinol Hyponatremia - Resolved Hx prostate cancer - Continue with finasteride, tamulosin - Has catheder, changed in ED DVT prophylaxis - Resume lovenox - SCDs <Emy Parker - Last Filed: 03/11/18 14:49> Objective - Vital Signs/Intake and Output Vital Signs (last 24 hours): Temp Pulse Resp BP Pulse Ox 98.2 F 84 18 121/76 97 03/11/18 12:35 03/11/18 12:35 03/11/18 12:35 03/11/18 12:35 03/11/18 12:35 Intake and Output: 03/11/18 03/11/18 06:59 18:59 Output Total 1200 Balance -1200 - Medications Medications: Current Medications Allopurinol (Zyloprim) 100 mg PO DAILY [facility] Last Admin: 03/11/18 09:08 Dose: 100 mg Donepezil HCl (Aricept) 10 mg PO HS [facility] Last Admin: 03/10/18 21:02 Dose: 10 mg Enoxaparin Sodium (Lovenox) 40 mg SC DAILY [facility]; Protocol Last Admin: 03/10/18 11:17 Dose: Not Given Finasteride (Proscar) 5 mg PO DAILY [facility] Last Admin: 03/11/18 09:06 Dose: 5 mg Furosemide (Lasix) 20 mg PO DAILY [facility] Last Admin: 03/11/18 09:06 Dose: 20 mg Sodium Chloride (Sodium Chloride 0.9%) 1,000 mls @ 80 mls/hr IV .[id number] [facility] Last Admin: 03/11/18 09:08 Dose: 80 mls/hr Cefepime HCl 2 gm/ Sodium (Chloride) 100 mls @ 100 mls/hr IVPB Q12 [facility]; Protocol Last Admin: 03/11/18 09:11 Dose: 100 mls/hr Vancomycin HCl 1 gm/ Sodium (Chloride) 250 mls @ 166.667 mls/hr IVPB Q12 [facility]; Protocol Losartan Potassium (Cozaar) 50 mg PO DAILY [facility] Last Admin: 03/11/18 09:07 Dose: 50 mg Metoprolol Succinate (Toprol Xl) 25 mg PO DAILY [facility] Last Admin: 03/11/18 09:07 Dose: 25 mg Spironolactone (Aldactone) 25 mg PO DAILY [facility] Last Admin: 03/11/18 09:06 Dose: 25 mg Tamsulosin HCl (Flomax) 0.4 mg PO HS [facility] Last Admin: 03/10/18 21:02 Dose: 0.4 mg - Labs Labs: 03/11/18 04:00 03/11/18 06:45 PT 14.3 Seconds (9.8-13.1) H 03/09/18 17:20 INR 1.3 03/09/18 17:20 APTT 28.5 Seconds (25.6-37.1) 03/09/18 17:20 Attending/Attestation - Attestation I have personally seen and examined this patient.: Yes I have fully participated in the care of the patient.: Yes I have reviewed all pertinent clinical information, including history, physical exam and plan: Yes Notes (Text): Sepsis sec to UTI -Urine c/s : Staph coag negative - start IV Vanco - cont IV Cefepime for now - catheter changed - Blood c/s : neg so far Chronic CHF, systolic and diastolic dysfunction cont Lasix, Aldactone, Losartan, Toprol Dementia likely Alzheimer's cont Aricept Urinary Retention due to BPH - Pt has Cheek cath from home - changed on admission - has an appt to see his Urologist - Mike Mcgee on 03/23 - cont Proscar and Flomax
[2018-03-11] MEDS: Metoprolol Succinate 25 mg XL Tab PO SCH (09:07)
[2018-03-11] MEDS: Cefepime 2 GM in Sodium Chloride 0.9% 100 ML IVPB SCH ×2 (09:11→20:31)
[2018-03-12 08:07] VITALS: RESP 18
[2018-03-12 08:42] LABS: BASO % 0.3 % (0.0-2.0); EOS % 0.3 % (0.0-4.0); LYMPH # 0.5 K/uL (1.0-4.3); LYMPH % 4.1 % (20.0-40.0); MEAN CELL VOLUME 90.5 fl (80.0-94.0); MEAN CORPUSCULAR HGB CONC 34.3 g/dL (33.0-37.0); MEAN PLATELET VOLUME 7.6 fl (7.2-11.7); MONO # 0.5 K/uL (0.0-0.8); MONO % 4.4 % (0.0-10.0); NEUT # 10.3 K/uL (1.8-7.0); NEUT % 90.9 % (50.0-75.0); NRBC % 0.1 % (0.0-0.0); PLATELET COUNT 242 K/uL (130-400); RBC 3.88 Mil/uL (4.40-5.90); RED CELL DISTRIBUTION WIDTH 13.9 % (11.5-14.5); WHITE BLOOD COUNT 11.3 K/uL (4.8-10.8)
[2018-03-12] MEDS: Enoxaparin 40 mg Syringe SC SCH (09:01)
[2018-03-12] MEDS: Metoprolol Succinate 25 mg XL Tab PO SCH (09:04)
--- NOTE | 2018-03-12 09:11 | CP.PCM.DIS ---
Provider - Provider Date of Admission: 03/09/18 18:02 Attending physician: Iggy Tavares MD Primary care physician: Dr Alyce Mcleod Time Spent in preparation of Discharge (in minutes): 35 Diagnosis - Discharge Diagnosis (1) Sepsis secondary to UTI Status: Acute (2) Altered mental status Status: Acute (3) Chronic congestive heart failure Status: Chronic (4) History of prostate cancer Status: Chronic (5) Atrial fibrillation Status: Chronic (6) Hypertension Status: Chronic Hospital Course - Lab Results Lab Results: Micro Results 03/09/18 20:20 Blood Blood Culture - Preliminary NO GROWTH AFTER 48 HOURS 03/09/18 17:10 Blood Blood Culture - Preliminary NO GROWTH AFTER 48 HOURS 03/09/18 17:20 Urine,Catheterized Urine Culture - Final Coagulase Neg Staphylococcus Most Recent Lab Values WBC 11.7 K/uL (4.8-10.8) H 03/11/18 04:00 RBC 3.94 Mil/uL (4.40-5.90) L 03/11/18 04:00 Hgb 12.1 g/dL (12.0-18.0) 03/11/18 04:00 Hct 35.9 % (35.0-51.0) 03/11/18 04:00 MCV 91.0 fl (80.0-94.0) 03/11/18 04:00 MCH 30.7 pg (27.0-31.0) 03/11/18 04:00 MCHC 33.8 g/dL (33.0-37.0) 03/11/18 04:00 RDW 14.0 % (11.5-14.5) 03/11/18 04:00 Plt Count 251 K/uL (130-400) 03/11/18 04:00 MPV 7.4 fl (7.2-11.7) 03/11/18 04:00 Neut % (Auto) 89.6 % (50.0-75.0) H 03/11/18 04:00 Lymph % (Auto) 5.0 % (20.0-40.0) L 03/11/18 04:00 [place] % (Auto) 5.0 % (0.0-10.0) 03/11/18 04:00 Eos % (Auto) 0.1 % (0.0-4.0) 03/11/18 04:00 Baso % (Auto) 0.3 % (0.0-2.0) 03/11/18 04:00 Neut # (Auto) 10.5 K/uL (1.8-7.0) H 03/11/18 04:00 Lymph # (Auto) 0.6 K/uL (1.0-4.3) L 03/11/18 04:00 [place] # (Auto) 0.6 K/uL (0.0-0.8) 03/11/18 04:00 Eos # (Auto) 0.0 K/uL (0.0-0.7) 03/11/18 04:00 Baso # (Auto) 0.0 K/uL (0.0-0.2) 03/11/18 04:00 Neutrophils % (Manual) 91 % (42-75) H 03/10/18 04:25 Band Neutrophils % 4 % (0-2) H 03/09/18 17:10 Lymphocytes % (Manual) 5 % (20-50) L 03/10/18 04:25 Monocytes % (Manual) 4 % (0-10) 03/10/18 04:25 Toxic Granulation Present 03/09/18 17:10 Platelet Estimate Normal (NORMAL) 03/10/18 04:25 Large Platelets Present 03/10/18 04:25 Hypochromasia (manual) Slight 03/09/18 17:10 Poikilocytosis (manual Slight 03/10/18 04:25 Anisocytosis (manual) Slight 03/10/18 04:25 Ovalocytes Slight 03/10/18 04:25 Robel Cells Slight 03/10/18 04:25 PT 14.3 Seconds (9.8-13.1) H 03/09/18 17:20 INR 1.3 03/09/18 17:20 APTT 28.5 Seconds (25.6-37.1) 03/09/18 17:20 pO2 22 mm/Hg (30-55) L 03/09/18 20:26 VBG pH 7.34 (7.32-7.43) 03/09/18 20:26 VBG pCO2 39 mmHg (40-60) L 03/09/18 20:26 VBG HCO3 19.7 mmol/L 03/09/18 20:26 VBG Total CO2 22.2 mmol/L (22-28) 03/09/18 20:26 VBG O2 Sat (Calc) 33.8 % (40-65) L 03/09/18 20:26 VBG Base Excess -4.4 mmol/L (0.0-2.0) L 03/09/18 20:26 VBG Potassium 4.1 mmol/L (3.6-5.2) 03/09/18 20:26 Sodium 130.0 mmol/L (132-148) L 03/09/18 20:26 Chloride 102.0 mmol/L (98-107) 03/09/18 20:26 Glucose 122 mg/dL (75-110) H 03/09/18 20:26 Lactate 2.2 mmol/L (0.7-2.1) H 03/09/18 20:26 FiO2 21.0 % 03/09/18 20:26 Crit Value Called To Jose R sherman md 03/09/18 17:26 Crit Value Called By 60Alexander 03/09/18 17:26 Crit Value Read Back Y 03/09/18 17:26 Blood Gas Notified Time 1730 03/09/18 17:26 Sodium 136 mmol/l (132-148) 03/11/18 06:45 Potassium 4.1 MMOL/L (3.6-5.0) 03/11/18 06:45 Chloride 109 mmol/L (98-107) H 03/11/18 06:45 Carbon Dioxide 24 mmol/L (22-30) 03/11/18 06:45 Anion Gap 7 (10-20) L 03/11/18 06:45 BUN 20 mg/dl (9-20) 03/11/18 06:45 Creatinine 0.9 mg/dl (0.8-1.5) 03/11/18 06:45 Est GFR ( Amer) > 60 03/11/18 06:45 Est GFR (Non-Af Amer) > 60 03/11/18 06:45 Random Glucose 103 mg/dL (75-110) 03/11/18 06:45 Lactic Acid 1.0 MMOL/L (0.7-2.1) 03/12/18 06:15 Calcium 8.5 mg/dL (8.4-10.2) 03/11/18 06:45 Phosphorus 4.8 mg/dl (2.5-4.5) H 03/09/18 17:10 Magnesium 2.0 MG/DL (1.6-2.3) 03/09/18 17:10 Total Bilirubin 1.2 mg/dl (0.2-1.3) 03/09/18 17:10 AST 49 U/L (17-59) 03/09/18 17:10 ALT 17 U/L (21-72) L 03/09/18 17:10 Alkaline Phosphatase 111 U/L (38-126) 03/09/18 17:10 Total Protein 7.3 G/DL (6.3-8.2) 03/09/18 17:10 Albumin 3.3 g/dL (3.5-5.0) L 03/09/18 17:10 Globulin 3.9 gm/dL (2.2-3.9) 03/09/18 17:10 Albumin/Globulin Ratio 0.9 (1.0-2.1) L 03/09/18 17:10 TSH 3rd Generation 0.85 mIU/ML (0.46-4.68) 03/10/18 04:25 Venous Blood Potassium 4.1 mmol/L (3.6-5.2) 03/09/18 20:26 Urine Color Yellow (YELLOW) 03/09/18 17:20 Urine Clarity Turbid (Clear) 03/09/18 17:20 Urine pH 7.0 (5.0-8.0) 03/09/18 17:20 Ur Specific [place] 1.012 (1.003-1.030) 03/09/18 17:20 Urine Protein 100 mg/dL (NEGATIVE) 03/09/18 17:20 Urine Glucose (UA) Neg mg/dL (NEGATIVE) 03/09/18 17:20 Urine Ketones Negative mg/dL (NEGATIVE) 03/09/18 17:20 Urine Blood Moderate (NEGATIVE) 03/09/18 17:20 Urine Nitrate Negative (NEGATIVE) 03/09/18 17:20 Urine Bilirubin Negative (NEGATIVE) 03/09/18 17:20 Urine Urobilinogen 2.0 mg/dL (0.2-1.0) 03/09/18 17:20 Ur Leukocyte Esterase Large Beth/uL (Negative) 01/10/19 17:20 Urine RBC (Auto) 34 /hpf (0-3) H 03/09/18 17:20 Urine WBC Clumps (Auto) Occ /hpf (NONE) H 03/09/18 17:20 Urine Microscopic WBC 396 /hpf (0-5) H 03/09/18 17:20 Urine Bacteria Many (<OCC) H 03/09/18 17:20 - Hospital Course Hospital Course: 78 y/o male with Hx of Alzheimer's Dementia , Urinary retention due to Prostatic Enlargement with chronic indwelling catheter , CHF, was brought in by EMS after he was found confused, wandering in the street on a cold winter day with no coat. Found to have leukocytosis and UTI. 1. Sepsis sec to UTI -Urine c/s : Staph coag negative sensitive to Oxacillin - received IV Cefepime and Vanco - catheter changed - Blood c/s : neg - leukocytosis resolved - will d/c pt home on PO Dicloxacillin 2. Chronic CHF, systolic and diastolic dysfunction cont Lasix, Aldactone, Losartan, Toprol 3. Dementia likely Alzheimer's cont Aricept 4. Urinary Retention due to BPH - Pt has Emanuel cath from home - Emanuel cath changed on admission - has an appt to see his Urologist - Dr Cota on 03/23 - cont Proscar and Flomax 5. Chronic A Fib, rate controlled - not candidate for anticoag due to hx of fall, dementia and hematuria - start ASA, cont Toprol Discharge Exam - Head Exam Head Exam: NORMOCEPHALIC - Eye Exam Eye Exam: EOMI, Normal appearance Pupil Exam: NORMAL ACCOMODATION - ENT Exam ENT Exam: Mucous Membranes Moist, Normal External Ear Exam - Neck Exam Neck exam: Full Rom - Respiratory Exam Respiratory Exam: NORMAL BREATHING PATTERN. absent: Respiratory Distress - Cardiovascular Exam Cardiovascular Exam: Irregular Rhythm, +S1, +S2 - GI/Abdominal Exam GI & Abdominal Exam: Normal Bowel Sounds, Soft. absent: Tenderness - Extremities Exam Extremities exam: full ROM, normal capillary refill, pedal pulses present - Back Exam Back exam: FULL ROM. absent: CVA tenderness (L), CVA tenderness (R) - Neurological Exam Neurological exam: Alert, Reflexes Normal Additional comments: oriented to person and place - Psychiatric Exam Psychiatric exam: Flat Affect - Skin Skin Exam: Dry, Normal Color, Warm Discharge Plan - Discharge Medications Prescriptions: Aspirin [Adult Aspirin] 81 mg PO DAILY #30 tablet. Dicloxacillin [Dynapen] 500 mg PO Q6 #28 cap - Follow Up Plan Condition: IMPROVED Disposition: HOME/ ROUTINE Instructions: Sepsis (DC), Sepsis (GEN) Additional Instructions: ff up with PMD Dr Mcleod carolyn keep Emanuel catheter until ff up with Urology Home RN ( education regarding Emanuel care), Home PT Keep appt with Dr Cota Referrals: Alyce Mcleod MD [Family Provider] - Candice Cota MD [Medical Doctor] -
[2018-03-12] MEDS ORDERED: Cefepime 2 GM in Sodium Chloride 0.9% 100 ML IVPB SCH (09:30)
[2018-03-12 11:38] LABS: LYMPHOCYTE 7 % (20-50); MONOCYTE 3 % (0-10); NEUTROPHIL 90 % (42-75); TOTAL CELLS COUNTED 100
[2018-03-12 11:39] LABS: PLATELET ESTIMATE NORMAL (NORMAL)
[2018-03-12 11:44] LABS: ANISOCYTOSIS SLIGHT
[2018-03-12 11:45] LABS: BURR CELLS SLIGHT; POIKILOCYTOSIS SLIGHT
[2018-03-12 12:18] VITALS: BP 132/84; PULSE 106; TEMP 97.9; O2SAT 97
--- NOTE | 2018-03-16 14:11 | PQF ---
PROVIDER RESPONSE TEXT: Sepsis due to Urinary Tract Infection ( Bladder) , likely related to Chronic Home Indwelling Catheter - Staph coag negative REVIEWER QUERY TEXT: Urosepsis WAS URINARY TRACT INFECTION RELATED TO PATIENT'S INDWELLING URINARY CATHETER? Urosepsis is documented in the Medical Record. Per [employer], urosepsis is an imp recise term. Please clarify in documentation the specific type of infection: -Bacturia -Urinary tract infection (specify specific location such as bladder, pyelonephritis, etc.) -Sepsis due to a urinary tract infection -Other The patient's Clinical Indicators include: PATIENT WITH CHRONIC INDWELLING URINARY CATHETER. URINE CULTURE FROM CATHETER STAPH COAG.NEGATIVE Query created by: Hodan Avalos on 03/14/2018 1:44 PM Electronically signed by: Emy Parker MD 03/16/2018 2:08 PM
--- NOTE | 2018-03-16 14:11 | PQF ---
PROVIDER RESPONSE TEXT: No anemia REVIEWER QUERY TEXT: Anemia Type COULD PATIENT'S ANEMIA BE CAUSED FROM CKD. PLEASE CLARIFY THE TYPE OF ANEMIA. Anemia is documented in the Medical Record. Please specify the cause (includes suspected or probable cause) Such as: -- Due to acute blood loss -- Due to chronic blood loss -- Due to iron deficiency -- Due to postoperative blood loss -- Due to chronic disease -- Other, please specify The patient's Clinical Indicators include: XXX Query created by: Hodan Avalos on 03/14/2018 1:33 PM Electronically signed by: Emy Parker MD 03/16/2018 2:08 PM
--- NOTE | 2018-03-16 14:11 | PQF ---
PROVIDER RESPONSE TEXT: CKD Stage II REVIEWER QUERY TEXT: Kidney Disease, Chronic CKD Stage COULD YOU PLEASE CLARIFY THE STAGE OF CKD. Chronic Kidney Disease (CKD) is documented in the Medical Record. Please specify the disease stage ( includes probable or suspected) Such as: -- Chronic kidney disease Stage 1 -- Chronic kidney disease Stage 2 -- Chronic kidney disease Stage 3 -- Chronic kidney disease Stage 4 -- Chronic kidney disease Stage 5 -- Chronic kidney disease Stage 5, requiring dialysis -- End Stage Renal Disease -- Other, please specify Stages are defined by the [employer] as follows: CKD Stage I GFR >= 90 ml / min per 1.73 m2 and persistent albuminuria CKD Stage 2 GFR between 60 and 89 with persistent albuminuria CKD Stage 3 GFR between 30 and 59 CKD Stage 4 GFR between 15 and 29 CKD Stage 5 GFR between <15 or End Stage Renal Disease The patient's Clinical Indicators include: EMERGENCY ROOM DOCUMENTS CKD Query created by: Hodan Avalos on 03/14/2018 1:36 PM Electronically signed by: Emy Parker MD 03/16/2018 2:08 PM
== END 2018-03-12 16:10 | disposition home or self-care (01) | DRG 698 ==
LOC: H.ER 15:36 → H.ERHOLD 18:02 → H.TEL 21:03
DX: T83.511A Infection and inflammatory reaction due to indwelling urethral catheter, initial encounter (principal); A41.1 Sepsis due to other specified staphylococcus; I13.0 Hypertensive heart and chronic kidney disease with heart failure and stage 1 through stage 4 chronic kidney disease, or unspecified chronic kidney disease; I50.42 Chronic combined systolic (congestive) and diastolic (congestive) heart failure; N39.0 Urinary tract infection, site not specified; N18.2 Chronic kidney disease, stage 2 (mild); F02.80 Dementia in other diseases classified elsewhere, unspecified severity, without behavioral disturbance, psychotic disturbance, mood disturbance, and anxiety; G30.9 Alzheimer's disease, unspecified; H40.9 Unspecified glaucoma; I48.2 Chronic atrial fibrillation; J44.9 Chronic obstructive pulmonary disease, unspecified; M10.9 Gout, unspecified; R31.9 Hematuria, unspecified; Y84.6 Urinary catheterization as the cause of abnormal reaction of the patient, or of later complication, without mention of misadventure at the time of the procedure; Y92.239 Unspecified place in hospital as the place of occurrence of the external cause; N40.1 Benign prostatic hyperplasia with lower urinary tract symptoms; R33.8 Other retention of urine; Z85.46 Personal history of malignant neoplasm of prostate; Z87.442 Personal history of urinary calculi; Z90.49 Acquired absence of other specified parts of digestive tract; Z91.83 Wandering in diseases classified elsewhere; Q82.5 Congenital non-neoplastic nevus; Z79.899 Other long term (current) drug therapy

== ENCOUNTER 2018-03-15 22:10 | Observation (INO) | payer MEDICAID, MEDICARE ==
[2018-03-15 22:10] VITALS: BMI 25.9
[2018-03-15] MEDS ORDERED: Morphine 4 MG/ML VIAL IVP STA (23:02)
[2018-03-15] MEDS ORDERED: Morphine 4 MG/ML VIAL ONE (23:05)
[2018-03-15 23:24] LABS: BASO # 0.1 K/uL (0.0-0.2); EOS # 0.1 K/uL (0.0-0.7); EOS % 0.7 % (0.0-4.0); HEMOGLOBIN 12.6 g/dL (12.0-18.0); LYMPH # 0.5 K/uL (1.0-4.3); LYMPH % 4.3 % (20.0-40.0); MEAN CORPUSCULAR HEMOGLOBIN 30.5 pg (27.0-31.0); MEAN CORPUSCULAR HGB CONC 33.5 g/dL (33.0-37.0); MEAN PLATELET VOLUME 7.1 fl (7.2-11.7); MONO # 0.6 K/uL (0.0-0.8); MONO % 4.6 % (0.0-10.0); NEUT # 10.6 K/uL (1.8-7.0); NEUT % 89.4 % (50.0-75.0); PLATELET COUNT 250 K/uL (130-400); RBC 4.14 Mil/uL (4.40-5.90); WHITE BLOOD COUNT 11.9 K/uL (4.8-10.8)
[2018-03-15 23:34] LABS: URINE AMORPHOUS SEDIMENT RARE /ul (<OCC); URINE BACTERIA FEW (<OCC); URINE BILIRUBIN NEGATIVE (NEGATIVE); URINE BLOOD LARGE (NEGATIVE); URINE CLARITY CLOUDY (Clear); URINE COLOR RED (YELLOW); URINE GLUCOSE (UA) NEG (NEGATIVE); URINE LEUKOCYTE ESTERASE MOD Leu/uL (Negative); URINE PROTEIN 100 mg/dL (NEGATIVE); URINE UROBILINOGEN 0.2-1.0 mg/dL (0.2-1.0); WBC CLUMPS MOD /hpf
[2018-03-15 23:36] LABS: ALB/GLOB RATIO 0.8 (1.0-2.1); ALBUMIN 2.7 g/dL (3.5-5.0); ALT/SGPT 34 U/L (21-72); AST/SGOT 32 U/L (17-59); BLOOD UREA NITROGEN 22 mg/dl (9-20); CALCIUM 8.7 mg/dL (8.4-10.2); GFR NON-AFRICAN AMERICAN > 60
--- NOTE | 2018-03-16 00:07 | ED PDOC ---
HPI: Male Pain Time Seen by Provider: 03/15/18 22:27 Chief Complaint (Nursing): Male Genitourinary Chief Complaint (Provider): Male Genitourinary History Per: Patient, EMS History/Exam Limitations: clinical condition (Dementia) Additional Complaint(s): 78 y/o male was brought to the ED by EMS due to lower abdominal pain and not draining urine from cheek. According to patient's daughter, patient was having problems with his cheek this morning. A home health aide came and changed it with very little urine drainage and sent patient to the ED. Patient was admitted to this hospital x1 week ago for UTI. However, patient was followed by Dr. Cota at [facility]. After speaking with Dr. Cota he recommended bladder US or irrigation. If any abnormalities are noticed will transfer patient to [facility]. Patient is complaining of lower abdominal pain however with his baseline dementia he is unable to provide more information. Past Medical History Reviewed: Historical Data, Nursing Documentation, Vital Signs Vital Signs: Last Vital Signs Temp 97.9 F 03/15/18 22:18 Pulse 86 03/15/18 22:18 Resp 16 03/15/18 22:18 BP 135/74 03/15/18 22:18 Pulse Ox 97 03/15/18 22:18 - Medical History PMH: Alzheimer's Disease, Anemia, Asthma, Atrial Fibrillation, Cardia Arrhythmia (A-FIB), CHF, COPD, Dementia, HTN, Kidney Stones, Chronic Kidney Disease - Surgical History Surgical History: Appendectomy, Endoscopy - Family History Family History: States: Unknown Family Hx - Immunization History Hx Tetanus Toxoid Vaccination: No Hx Influenza Vaccination: Yes Hx Pneumococcal Vaccination: Yes - Home Medications Home Medications: Ambulatory Orders Medication Instructions Recorded RX: Allopurinol [Zyloprim] 100 mg PO DAILY 03/09/18 RX: Donepezil [Aricept] 10 mg PO HS 03/09/18 RX: Finasteride [Proscar] 5 mg PO DAILY 03/09/18 RX: Furosemide [Lasix] 20 mg PO DAILY 03/09/18 RX: Losartan [Cozaar] 100 mg PO DAILY 03/09/18 RX: Metoprolol Succinate XL 25 mg PO DAILY 03/09/18 [Toprol XL] RX: Spironolactone [Aldactone] 25 mg PO DAILY 03/09/18 RX: Tamsulosin [Flomax] 0.4 mg PO HS 03/09/18 Aspirin [Adult Aspirin] 81 mg PO DAILY #30 tablet. 03/12/18 RX: Dicloxacillin [Dynapen] 500 mg PO Q6 #28 cap 03/12/18 - Allergies Allergies/Adverse Reactions: Allergies Allergy/AdvReac Type Severity Reaction Status Date / Time No Known Allergies Allergy Verified 03/15/18 22:16 Review of Systems Review Of Systems: ROS cannot be obtained secondary to pt's inabilty to answer questions. Physical Exam - Reviewed Nursing Documentation Reviewed: Yes Vital Signs Reviewed: Yes - Physical Exam Appears: Positive for: No Acute Distress (elderly appearing; confused but cooperative; answering appropriately but with minima information) Head Exam: Positive for: ATRAUMATIC, NORMOCEPHALIC Skin: Positive for: Normal Color, Warm, DRY Eye Exam: Positive for: Normal appearance, EOMI, PERRL Neck: Positive for: Normal, Painless ROM Cardiovascular/Chest: Positive for: Regular Rate, Rhythm. Negative for: Murmur Respiratory: Positive for: Normal Breath Sounds. Negative for: Respiratory Distress Gastrointestinal/Abdominal: Positive for: Tenderness (suprapubic ) Male Genital Exam: Positive for: normal genitalia (no testicular swelling), other (cheek in place, bulb inflated; approximately 30 ccs in cheek bag, dark- reddish appearing). Negative for: urethral discharge Extremity: Positive for: Normal ROM. Negative for: Pedal Edema, Deformity Neurologic/Psych: Positive for: Alert, Oriented. Negative for: Motor/Sensory Deficits - Laboratory Results Result Diagrams: 03/15/18 23:16 03/15/18 23:16 Lab Results: Total Bilirubin 0.8 mg/dl (0.2-1.3) 03/15/18 23:16 AST 32 U/L (17-59) 03/15/18 23:16 ALT 34 U/L (21-72) 03/15/18 23:16 Alkaline Phosphatase 99 U/L (38-126) 03/15/18 23:16 Total Protein 6.2 G/DL (6.3-8.2) L 03/15/18 23:16 Albumin 2.7 g/dL (3.5-5.0) L 03/15/18 23:16 Globulin 3.5 gm/dL (2.2-3.9) 03/15/18 23:16 Albumin/Globulin Ratio 0.8 (1.0-2.1) L 03/15/18 23:16 Urine Color Red (YELLOW) 03/15/18 23:16 Urine Clarity Cloudy (Clear) 03/15/18 23:16 Urine pH 6.0 (5.0-8.0) 03/15/18 23:16 Ur Specific [place] 1.008 (1.003-1.030) 03/15/18 23:16 Urine Protein 100 mg/dL (NEGATIVE) 03/15/18 23:16 Urine Glucose (UA) Neg mg/dL (NEGATIVE) 03/15/18 23:16 Urine Ketones Negative mg/dL (NEGATIVE) 03/15/18 23:16 Urine Blood Large (NEGATIVE) 03/15/18 23:16 Urine Nitrate Negative (NEGATIVE) 03/15/18 23:16 Urine Bilirubin Negative (NEGATIVE) 03/15/18 23:16 Urine Urobilinogen 0.2-1.0 mg/dL (0.2-1.0) 03/15/18 23:16 Ur Leukocyte Esterase Mod [place]/uL (Negative) 03/15/18 23:16 Urine RBC (Auto) 171 /hpf (0-3) H 03/15/18 23:16 Urine WBC Clumps (Auto) Mod /hpf (NONE) H 03/15/18 23:16 Urine Microscopic WBC 290 /hpf (0-5) H 03/15/18 23:16 Amorphous Sediment Rare /ul (<OCC) H 03/15/18 23:16 Urine Bacteria Few (<OCC) H 03/15/18 23:16 - ECG O2 Sat by Pulse Oximetry: 97 (RA) Pulse Ox Interpretation: Normal Medical Decision Making Medical Decision Making: Time: 22:43 Initial Impression: Workup for cheek outflow obstruction vs other bladder obstruction vs dehydration Initial Plan: * CMP * CBC w/ diff * Morphine 2 mg * UA * US Bladder Dr Cota Number: [phone] 00:42 Bladder US Findings: The prostate there is mildly enlarged measuring 46.5 cc in volume. No Cheek catheter is identified. Prevoid bladder volume is 311 cc. Postvoid residue is 311 cc. Nonvisualization of the right ureteral jet. Nonvisualization of the left ureteral jet. Impression: Urinary retention. 00:45 US shows cheek is not in place. RN took out and replaced with new cheek with immediate urine output of only 400cc. Patient with improvement of pain with morphine. Labs show elevated WBC count with UTI. Patient was on Cefepime a week ago in the hospital and discharged on diclocacillin. Daughter confirmed pt has been receiving outpatient antibiotics. Will start patient on Vancomycin and IV Hydration. Spoke with Dr. Cota who agrees that pt needs IV antibiotics and appears dehydrated due to low urine output. Urine and blood cultures sent. Gladis bowles to be admitted to medicine floor and discussed with Dr. Colon. Scribe Attestation: Documented by Jovany Thapa acting as a scribe for Rose Baker MD. Provider Scribe Attestation: All medical record entries made by the Scribe were at my direction and persona lly dictated by me. I have reviewed the chart and agree that the record accurately reflects my personal performance of the history, physical exam, medical decision making, and the department course for this patient. I have also personally directed, reviewed, and agree with the discharge instructions and disposition. Disposition - Clinical Impression Clinical Impression: Urinary tract infection, BPH (benign prostatic hyperplasia), Urinary retention - Patient ED Disposition Is Patient to be Admitted: Yes - Disposition Disposition Time: 00:50 Condition: GUARDED - POA Present On Arrival: Cath Associated UTI
[2018-03-16 00:27] LABS: LYMPHOCYTE 5 % (20-50); MONOCYTE 6 % (0-10); NEUTROPHIL 89 % (42-75); PLATELET ESTIMATE NORMAL (NORMAL); TOTAL CELLS COUNTED 100
[2018-03-16] MEDS ORDERED: Sodium Chloride 0.9% 1,000 ML IV STA (01:06)
[2018-03-16] MEDS ORDERED: Vancomycin 1 g Inj ONE (01:17)
--- NOTE | 2018-03-16 01:33 | CP.PCM.HP ---
History of Present Illness - History of Present Illness History of Present Illness: PMD: Dr Mcleod Chief Complaint: lower abdominal pain/ No Urine output The patient was seen and examined in the ED HPI: The Hx was obtained from the ED Staff and after review of the medical records as the patient has Dementia. This is an 78 years old male with hx of Alzheimer's dementia, CHF, Prostate cancer with chronic cheek catheterization, who was last admitted on 03/09/18 and discharged on 03/12/18 with dx of UTI with sepsis to copmplete 5 days of Dicloxacillin at home. He was sent to the ED because of lower abdominal pain and no drainage from the newly changed cheek catheter by the Home health Aide 5 hours prior. In the ED the Cheek was removed, Bladder US was done showing enlarged prostate and Urinary retention. A new cheek catheter was reinserted. PMH: Anemia; Alzheimer Dementia; COPD; HTN; A Fib; CDH with diastolic dysfunction; Nephrolithiasis; Gout; Prostate Cancer with brachytherapy; IgA nephropathy PSH: Appendectomy; Endoscopy SH: No illegal drug use; No smoking of cigarettes; Alcohol socially; Live with family FH: state: No known family hx Allergies: NKDA Medication: Reviewed - Medical History PMH: Alzheimer's Disease, Anemia, Asthma, Atrial Fibrillation, Cardia Arrhythmia (A-FIB), CHF, COPD, Dementia, HTN, Kidney Stones, Chronic Kidney Disease - Surgical History Surgical History: Appendectomy, Endoscopy - Family History Family History: States: Unknown Family Hx Present on Admission - Present on Admission Any Indicators Present on Admission: Yes History of DVT/PE: No History of Uncontrolled Diabetes: No Urinary Catheter: Yes Decubitus Ulcer Present: No Review of Systems - Review of Systems Systems not reviewed;Unavailable: Dementia Review of Systems: review of systems are limited because of the patient's dementia - Constitutional Constitutional: absent: Chills, Fever, Headache - EENT Eyes: absent: Blurred Vision, Floaters, Requires Corrective Lenses Ears: absent: Decreased Hearing, Tinnitus Nose/Mouth/Throat: absent: Epistaxis, Nasal Congestion - Cardiovascular Cardiovascular: absent: Chest Pain, Dyspnea - Respiratory Respiratory: absent: Cough, Dyspnea - Gastrointestinal Additional comments: Lower abdominal pain - Musculoskeletal Musculoskeletal: Arthralgias. absent: Joint Swelling - Integumentary Integumentary: absent: Pruritus, Rash - Neurological Neurological: Memory Loss. absent: Confusion, Dizziness - Psychiatric Psychiatric: absent: Depression - Endocrine Endocrine: absent: Palpitations - Hematologic/Lymphatic Hematologic: absent: Easy Bleeding, Easy Bruising Past Patient History - Infectious Disease Hx of Infectious Diseases: None - Past Medical History & Family History Past Medical History?: Yes - Past Social History Smoking Status: Never Smoked Chewing Tobacco Use: No Cigar Use: No Alcohol: Social Drugs: Denies, Inhalants Home Situation {Lives}: With Family - CARDIAC Hx Atrial Fibrillation: Yes Hx Cardia Arrhythmia: Yes (A-FIB) Hx Congestive Heart Failure: Yes Hx Hypertension: Yes - PULMONARY Hx Asthma: Yes Hx Chronic Obstructive Pulmonary Disease (COPD): Yes - NEUROLOGICAL Hx Alzheimer's Disease: Yes Hx Dementia: Yes - HEENT Hx HEENT Problems: Yes Other/Comment: Wears eyeglasses - RENAL Hx Chronic Kidney Disease: Yes Hx Kidney Stones: Yes - ENDOCRINE/METABOLIC Hx Endocrine Disorders: No - HEMATOLOGICAL/ONCOLOGICAL Hx Anemia: Yes - INTEGUMENTARY Hx Dermatological Problems: No - MUSCULOSKELETAL/RHEUMATOLOGICAL Hx Musculoskeletal Disorders: No Hx Falls: No - GASTROINTESTINAL Hx Gastrointestinal Disorders: No - GENITOURINARY/GYNECOLOGICAL Hx Genitourinary Disorders: Yes Hx Prostate Cancer: Yes Hx Prostate Problems: Yes - PSYCHIATRIC Hx Psychophysiologic Disorder: No Hx Substance Use: No - SURGICAL HISTORY Hx Appendectomy: Yes - ANESTHESIA Hx Anesthesia: Yes Hx Anesthesia Reactions: No Hx Malignant Hyperthermia: No Meds Allergies/Adverse Reactions: Allergies Allergy/AdvReac Type Severity Reaction Status Date / Time No Known Allergies Allergy Verified 03/15/18 22:16 Physical Exam - Constitutional Appears: No Acute Distress - Head Exam Head Exam: ATRAUMATIC, NORMAL INSPECTION, NORMOCEPHALIC - Eye Exam Eye Exam: EOMI, Normal appearance Pupil Exam: NORMAL ACCOMODATION, PERRL - ENT Exam ENT Exam: Mucous Membranes Dry, Normal Exam, Normal External Ear Exam - Neck Exam Neck exam: Positive for: Full Rom, Normal Inspection. Negative for: Lymphadenopathy, Tenderness - Respiratory Exam Respiratory Exam: Clear to Auscultation Bilateral. absent: Rales, Rhonchi, Wheezes - Cardiovascular Exam Cardiovascular Exam: Irregular Rhythm, RRR, +S1, +S2 - GI/Abdominal Exam GI & Abdominal Exam: Normal Bowel Sounds, Soft. absent: Mass, Organomegaly, Tenderness - Rectal Exam Rectal Exam: Deferred - Extremities Exam Extremities exam: Positive for: full ROM, normal inspection. Negative for: calf tenderness, pedal edema - Back Exam Back exam: NORMAL INSPECTION. absent: CVA tenderness (L), CVA tenderness (R) - Neurological Exam Neurological exam: Alert, CN II-XII Intact, Oriented x3, Reflexes Normal - Psychiatric Exam Psychiatric exam: Normal Affect, Normal Mood - Skin Skin Exam: Dry, Intact, Normal Color, Warm Results - Vital Signs Recent Vital Signs: Last Vital Signs Temp 97.9 F 03/15/18 22:18 Pulse 86 03/15/18 22:18 Resp 16 03/15/18 22:18 BP 135/74 03/15/18 22:18 Pulse Ox 97 03/16/18 01:12 - Labs Result Diagrams: 03/15/18 23:16 03/15/18 23:16 Labs: Laboratory Results - last 24 hr 03/15/18 03/15/18 03/15/18 23:16 23:16 23:16 WBC 11.9 H RBC 4.14 L Hgb 12.6 Hct 37.7 MCV 91.0 MCH 30.5 MCHC 33.5 RDW 14.0 Plt Count 250 MPV 7.1 L Neut % (Auto) 89.4 H Lymph % (Auto) 4.3 L [place] % (Auto) 4.6 Eos % (Auto) 0.7 Baso % (Auto) 1.0 Neut # (Auto) 10.6 H Lymph # (Auto) 0.5 L [place] # (Auto) 0.6 Eos # (Auto) 0.1 Baso # (Auto) 0.1 Neutrophils % (Manual) 89 H Lymphocytes % (Manual) 5 L Monocytes % (Manual) 6 Platelet Estimate Normal RBC Morphology Normal Sodium 136 Potassium 3.9 Chloride 106 Carbon Dioxide 22 Anion Gap 12 BUN 22 H Creatinine 0.9 Est GFR ( Amer) > 60 Est GFR (Non-Af Amer) > 60 Random Glucose 103 Calcium 8.7 Total Bilirubin 0.8 AST 32 ALT 34 Alkaline Phosphatase 99 Total Protein 6.2 L Albumin 2.7 L Globulin 3.5 Albumin/Globulin Ratio 0.8 L Urine Color Red Urine Clarity Cloudy Urine pH 6.0 Ur Specific [place] 1.008 Urine Protein 100 Urine Glucose (UA) Neg Urine Ketones Negative Urine Blood Large Urine Nitrate Negative Urine Bilirubin Negative Urine Urobilinogen 0.2-1.0 Ur Leukocyte Esterase Mod Urine RBC (Auto) 171 H Urine WBC Clumps (Auto) Mod H Urine Microscopic WBC 290 H Amorphous Sediment Rare H Urine Bacteria Few H - Imaging and Cardiology Bladder US Additional comment: 00:42 Bladder US Findings: The prostate there is mildly enlarged measuring 46.5 cc in volume. No Cheek catheter is identified. Prevoid bladder volume is 311 cc. Postvoid residue is 311 cc. Nonvisualization of the right ureteral jet. Nonvisualization of the left ureteral jet. Impression: Urinary retention. Assessment & Plan - Assessment and Plan (Free Text) Assessment: #. Urinary Retention #. Pyuria #. Dehydration #. Leukocytosis #. Anemia #. Alzheimer's dementia #. CHF Plan: 78 years old male with hx of Prostate cancer with chronic cheek catheterization, who was last admitted on 03/09/18 and discharged on 03/12/18 with dx of UTI with sepsis to complete 5 days of Dicloxacillin at home. Came to ED because of lower abdominal pain and no drainage from the newly changed cheek catheter by the Home health Aide 5 hours prior. #. Urinary Retention. Cheek catheter changed in ED - Consult Dr Cota Urologist - Finasteride - Flomax - IV Fluids #. Pyuria. last urine culture 03/09/18 grew Staph sensitive to Oxacillin and Vancomycin. The patient was discharged on Dicloxacillin to be completed on 03/16/18. we will continue Vancomycin on 03/16/18 #. Dehydration - IV fluids #. Leukocytosis. No fever, Lumbar pain nor suprapubic pain post drainage of retained urine - Blood culture - Urine Culture #. Anemia - Follow Hemoglobin #. Alzheimer's dementia - Aricept #. DVT Prophylaxis with SCD and Lovenox #. Code Status: Full - Date & Time Date: 03/16/18 Time: 01:33
[2018-03-16] MEDS ORDERED: Sodium Chloride 0.9% 1,000 ML IV SCH (03:45)
--- NOTE | 2018-03-16 07:23 | US ---
Date of service: 03/15/2018 PROCEDURE: Ultrasound urinary bladder HISTORY: not urinating, cheek in place COMPARISON: None TECHNIQUE: Grayscale and color Doppler sonographic images were obtained of the urinary bladder. FINDINGS: The urinary bladder is Unremarkable without wall thickening or intraluminal debris. No calculus or gross mass lesion identified. No Cheek catheter visualized within the urinary bladder. No free fluid seen in the pelvis. Prevoid bladder volume was 311 cc. Postvoid bladder volume is unchanged and measures 311 cc. Prostate is heterogeneous and measures 4.6 x 3.7 x 5.3 cm for a volume of 46 0.5 cc. Prostatic calcifications noted. IMPRESSION: Unremarkable urinary bladder. No Cheek catheter visualized within the urinary bladder. Heterogeneous, enlarged prostate. Preliminary impression was provided by the Teleradiology service. Findings are concordant.
[2018-03-16 07:41] VITALS: BP 135/78; RESP 20; TEMP 97.5; O2SAT 99
[2018-03-16] MEDS ORDERED: Enoxaparin 40 mg Syringe SC SCH (09:00)
[2018-03-16] MEDS ORDERED: Metoprolol Succinate 25 mg XL Tab PO SCH (09:00)
[2018-03-16 09:53] VITALS: PULSE 61
--- NOTE | 2018-03-16 10:12 | CP.PCM.DIS ---
<Armida Burkett - Last Filed: 03/16/18 13:40> Provider - Provider Date of Admission: 03/16/18 01:06 Attending physician: Kennedy Colon Consults: 03/16/18 03:23 Case Management Referral Routine Comment: discharged w/ home health RN after previous visit Physician Instructions: Reason For Exam: d/c planning Reason for Referral: Discharge Planning Time Spent in preparation of Discharge (in minutes): 30 Diagnosis - Discharge Diagnosis (1) Urinary retention Status: Acute (2) Urinary tract infection Status: Acute (3) BPH (benign prostatic hyperplasia) Status: Chronic Hospital Course - Lab Results Lab Results: Most Recent Lab Values WBC 11.9 K/uL (4.8-10.8) H 03/15/18 23:16 RBC 4.14 Mil/uL (4.40-5.90) L 03/15/18 23:16 Hgb 12.6 g/dL (12.0-18.0) 03/15/18 23:16 Hct 37.7 % (35.0-51.0) 03/15/18 23:16 MCV 91.0 fl (80.0-94.0) 03/15/18 23:16 MCH 30.5 pg (27.0-31.0) 03/15/18 23:16 MCHC 33.5 g/dL (33.0-37.0) 03/15/18 23:16 RDW 14.0 % (11.5-14.5) 03/15/18 23:16 Plt Count 250 K/uL (130-400) 03/15/18 23:16 MPV 7.1 fl (7.2-11.7) L 03/15/18 23:16 Neut % (Auto) 89.4 % (50.0-75.0) H 03/15/18 23:16 Lymph % (Auto) 4.3 % (20.0-40.0) L 03/15/18 23:16 Graham % (Auto) 4.6 % (0.0-10.0) 03/15/18 23:16 Eos % (Auto) 0.7 % (0.0-4.0) 03/15/18 23:16 Baso % (Auto) 1.0 % (0.0-2.0) 03/15/18 23:16 Neut # (Auto) 10.6 K/uL (1.8-7.0) H 03/15/18 23:16 Lymph # (Auto) 0.5 K/uL (1.0-4.3) L 03/15/18 23:16 Graham # (Auto) 0.6 K/uL (0.0-0.8) 03/15/18 23:16 Eos # (Auto) 0.1 K/uL (0.0-0.7) 03/15/18 23:16 Baso # (Auto) 0.1 K/uL (0.0-0.2) 03/15/18 23:16 Neutrophils % (Manual) 89 % (42-75) H 03/15/18 23:16 Lymphocytes % (Manual) 5 % (20-50) L 03/15/18 23:16 Monocytes % (Manual) 6 % (0-10) 03/15/18 23:16 Platelet Estimate Normal (NORMAL) 03/15/18 23:16 RBC Morphology Normal (NORMAL) 03/15/18 23:16 Sodium 136 mmol/l (132-148) 03/15/18 23:16 Potassium 3.9 MMOL/L (3.6-5.0) 03/15/18 23:16 Chloride 106 mmol/L (98-107) 03/15/18 23:16 Carbon Dioxide 22 mmol/L (22-30) 03/15/18 23:16 Anion Gap 12 (10-20) 03/15/18 23:16 BUN 22 mg/dl (9-20) H 03/15/18 23:16 Creatinine 0.9 mg/dl (0.8-1.5) 03/15/18 23:16 Est GFR ( Amer) > 60 03/15/18 23:16 Est GFR (Non-Af Amer) > 60 03/15/18 23:16 Random Glucose 103 mg/dL (75-110) 03/15/18 23:16 Calcium 8.7 mg/dL (8.4-10.2) 03/15/18 23:16 Total Bilirubin 0.8 mg/dl (0.2-1.3) 03/15/18 23:16 AST 32 U/L (17-59) 01/16/19 23:16 ALT 34 U/L (21-72) 03/15/18 23:16 Alkaline Phosphatase 99 U/L (38-126) 03/15/18 23:16 Total Protein 6.2 G/DL (6.3-8.2) L 03/15/18 23:16 Albumin 2.7 g/dL (3.5-5.0) L 03/15/18 23:16 Globulin 3.5 gm/dL (2.2-3.9) 03/15/18 23:16 Albumin/Globulin Ratio 0.8 (1.0-2.1) L 03/15/18 23:16 Urine Color Red (YELLOW) 03/15/18 23:16 Urine Clarity Cloudy (Clear) 03/15/18 23:16 Urine pH 6.0 (5.0-8.0) 03/15/18 23:16 Ur Specific [place] 1.008 (1.003-1.030) 03/15/18 23:16 Urine Protein 100 mg/dL (NEGATIVE) 03/15/18 23:16 Urine Glucose (UA) Neg mg/dL (NEGATIVE) 03/15/18 23:16 Urine Ketones Negative mg/dL (NEGATIVE) 03/15/18 23:16 Urine Blood Large (NEGATIVE) 03/15/18 23:16 Urine Nitrate Negative (NEGATIVE) 03/15/18 23:16 Urine Bilirubin Negative (NEGATIVE) 03/15/18 23:16 Urine Urobilinogen 0.2-1.0 mg/dL (0.2-1.0) 03/15/18 23:16 Ur Leukocyte Esterase Mod Beth/uL (Negative) 03/15/18 23:16 Urine RBC (Auto) 171 /hpf (0-3) H 03/15/18 23:16 Urine WBC Clumps (Auto) Mod /hpf (NONE) H 03/15/18 23:16 Urine Microscopic WBC 290 /hpf (0-5) H 03/15/18 23:16 Amorphous Sediment Rare /ul (<OCC) H 03/15/18 23:16 Urine Bacteria Few (<OCC) H 03/15/18 23:16 - Hospital Course Hospital Course: 78 year old male with hx of Alzheimer's dementia, CHF, Prostate cancer with chronic cheek catheterization, who was last admitted on 03/09/18 and discharged on 03/12/18 with dx of UTI with sepsis to complete 5 days of Dicloxacillin at home was admitted for UTI secondary to Foly catheter and dehydration. ED course: cheek was removed, Bladder US was done showing enlarged prostate and Urinary retention. A new cheek catheter was reinserted at that time. Patient was then transferred to Med/Surg and given one dose of Vancomycin as his last urine culture 03/09/18 grew Staph sensitive to Vancomycin. He was maintained on IV fluids for dehydration. Patient was afebrile and vitally stable during his stay. Patient is stable for discharge and will follow up with Dr. Cota. - Date & Time of H&P Date of H&P: 03/16/18 Time of H&P: 08:30 Discharge Exam - Head Exam Head Exam: ATRAUMATIC, NORMAL INSPECTION, NORMOCEPHALIC Additional comments: Patient has notable darkened skin on left side of face- chronic as per patient - Respiratory Exam Respiratory Exam: Clear to PA & Lateral, NORMAL BREATHING PATTERN, UNREMARKABLE. absent: Decreased Breath Sounds, Prolonged Expiratory Phase, Rales, Rhonchi, Wheezes, Respiratory Distress, Stridor - Cardiovascular Exam Cardiovascular Exam: REGULAR RHYTHM, +S1, +S2. absent: Clicks, Gallop, Rubs - GI/Abdominal Exam GI & Abdominal Exam: Normal Bowel Sounds, Soft. absent: Distended, Guarding, Rebound, Rigid, Tenderness - Exam Exam: Circumcision, NORMAL INSPECTION. absent: Scrotal Swelling, Testicular Tenderness, Uretheral Discharge, Bladder Distension External exam: NORMAL EXTERNAL EXAM. absent: Ecchymosis, Erythema, Swelling Additional comments: Cheek in place without discharge or swelling or erythema around penile orifice. - Neurological Exam Neurological exam: Alert - Skin Skin Exam: Dry, Intact, Normal Color, Warm Discharge Plan - Follow Up Plan Condition: GUARDED Disposition: HOME/ ROUTINE Instructions: Urinary Tract Infection, Adult (DC), Cheek Catheter, Male, Urinary Retention (DC) Additional Instructions: Follow up with PMD Follow up with Dr. Ford (Urology) as out patient Continue Dicloxacillin as prescribed at home Continue Proscar and Flomax as prescribed. Referrals: Alyce Mcleod MD [Family Provider] - Candice Cota MD [Medical Doctor] - Emy Tan - Last Filed: 03/16/18 14:16> Provider - Provider Date of Admission: 03/16/18 01:06 Attending physician: Kennedy Colon Consults: 03/16/18 03:23 Case Management Referral Routine Comment: discharged w/ home health RN after previous visit Physician Instructions: Reason For Exam: d/c planning Reason for Referral: Discharge Planning Hospital Course - Lab Results Lab Results: Most Recent Lab Values WBC 11.9 K/uL (4.8-10.8) H 03/15/18 23:16 RBC 4.14 Mil/uL (4.40-5.90) L 03/15/18 23:16 Hgb 12.6 g/dL (12.0-18.0) 03/15/18 23:16 Hct 37.7 % (35.0-51.0) 03/15/18 23:16 MCV 91.0 fl (80.0-94.0) 03/15/18 23:16 MCH 30.5 pg (27.0-31.0) 03/15/18 23:16 MCHC 33.5 g/dL (33.0-37.0) 03/15/18 23:16 RDW 14.0 % (11.5-14.5) 03/15/18 23:16 Plt Count 250 K/uL (130-400) 03/15/18 23:16 MPV 7.1 fl (7.2-11.7) L 03/15/18 23:16 Neut % (Auto) 89.4 % (50.0-75.0) H 03/15/18 23:16 Lymph % (Auto) 4.3 % (20.0-40.0) L 03/15/18 23:16 Graham % (Auto) 4.6 % (0.0-10.0) 03/15/18 23:16 Eos % (Auto) 0.7 % (0.0-4.0) 03/15/18 23:16 Baso % (Auto) 1.0 % (0.0-2.0) 03/15/18 23:16 Neut # (Auto) 10.6 K/uL (1.8-7.0) H 03/15/18 23:16 Lymph # (Auto) 0.5 K/uL (1.0-4.3) L 03/15/18 23:16 Graham # (Auto) 0.6 K/uL (0.0-0.8) 03/15/18 23:16 Eos # (Auto) 0.1 K/uL (0.0-0.7) 03/15/18 23:16 Baso # (Auto) 0.1 K/uL (0.0-0.2) 03/15/18 23:16 Neutrophils % (Manual) 89 % (42-75) H 03/15/18 23:16 Lymphocytes % (Manual) 5 % (20-50) L 03/15/18 23:16 Monocytes % (Manual) 6 % (0-10) 03/15/18 23:16 Platelet Estimate Normal (NORMAL) 03/15/18 23:16 RBC Morphology Normal (NORMAL) 03/15/18 23:16 Sodium 136 mmol/l (132-148) 03/15/18 23:16 Potassium 3.9 MMOL/L (3.6-5.0) 03/15/18 23:16 Chloride 106 mmol/L (98-107) 03/15/18 23:16 Carbon Dioxide 22 mmol/L (22-30) 03/15/18 23:16 Anion Gap 12 (10-20) 03/15/18 23:16 BUN 22 mg/dl (9-20) H 03/15/18 23:16 Creatinine 0.9 mg/dl (0.8-1.5) 03/15/18 23:16 Est GFR ( Amer) > 60 03/15/18 23:16 Est GFR (Non-Af Amer) > 60 03/15/18 23:16 Random Glucose 103 mg/dL (75-110) 03/15/18 23:16 Calcium 8.7 mg/dL (8.4-10.2) 03/15/18 23:16 Total Bilirubin 0.8 mg/dl (0.2-1.3) 03/15/18 23:16 AST 32 U/L (17-59) 03/15/18 23:16 ALT 34 U/L (21-72) 03/15/18 23:16 Alkaline Phosphatase 99 U/L (38-126) 03/15/18 23:16 Total Protein 6.2 G/DL (6.3-8.2) L 03/15/18 23:16 Albumin 2.7 g/dL (3.5-5.0) L 03/15/18 23:16 Globulin 3.5 gm/dL (2.2-3.9) 03/15/18 23:16 Albumin/Globulin Ratio 0.8 (1.0-2.1) L 03/15/18 23:16 Urine Color Red (YELLOW) 03/15/18 23:16 Urine Clarity Cloudy (Clear) 03/15/18 23:16 Urine pH 6.0 (5.0-8.0) 03/15/18 23:16 Ur Specific [place] 1.008 (1.003-1.030) 03/15/18 23:16 Urine Protein 100 mg/dL (NEGATIVE) 03/15/18 23:16 Urine Glucose (UA) Neg mg/dL (NEGATIVE) 03/15/18 23:16 Urine Ketones Negative mg/dL (NEGATIVE) 03/15/18 23:16 Urine Blood Large (NEGATIVE) 03/15/18 23:16 Urine Nitrate Negative (NEGATIVE) 03/15/18 23:16 Urine Bilirubin Negative (NEGATIVE) 03/15/18 23:16 Urine Urobilinogen 0.2-1.0 mg/dL (0.2-1.0) 03/15/18 23:16 Ur Leukocyte Esterase Mod Beth/uL (Negative) 03/15/18 23:16 Urine RBC (Auto) 171 /hpf (0-3) H 03/15/18 23:16 Urine WBC Clumps (Auto) Mod /hpf (NONE) H 03/15/18 23:16 Urine Microscopic WBC 290 /hpf (0-5) H 03/15/18 23:16 Amorphous Sediment Rare /ul (<OCC) H 03/15/18 23:16 Urine Bacteria Few (<OCC) H 03/15/18 23:16 Attending/Attestation - Attestation I have personally seen and examined this patient.: Yes I have fully participated in the care of the patient.: Yes I have reviewed all pertinent clinical information, including history, physical exam and plan: Yes Notes (Text): DIAGNOSES: Cheek Catheter in place on admission Dislodged Cheek Catheter Urinary Retention UTI ( Staph Coag negative ) Alzheimer's Dementia Prostatic Enlargement - keep Cheek catheter - keep appt with Dr Cota this March 21 - cont Dicloxacillin - finish dose - cont Flomax and Proscar - Home RN and PT
== END 2018-03-16 16:00 | disposition home or self-care (01) ==
LOC: H.ER 22:10 → INTOOBSV 03-16 01:06 → H.ERHOLD 03-16 01:06 → H.MEDSURG1 03-16 02:11
PROVIDERS: ADMIT Internal Medicine; ATTEND Internal Medicine
DX: T83.021A Displacement of indwelling urethral catheter, initial encounter (principal); Y84.6 Urinary catheterization as the cause of abnormal reaction of the patient, or of later complication, without mention of misadventure at the time of the procedure; N40.1 Benign prostatic hyperplasia with lower urinary tract symptoms; R33.8 Other retention of urine; F02.80 Dementia in other diseases classified elsewhere, unspecified severity, without behavioral disturbance, psychotic disturbance, mood disturbance, and anxiety; G30.9 Alzheimer's disease, unspecified; E86.0 Dehydration; D64.9 Anemia, unspecified; Z85.46 Personal history of malignant neoplasm of prostate; I13.0 Hypertensive heart and chronic kidney disease with heart failure and stage 1 through stage 4 chronic kidney disease, or unspecified chronic kidney disease; I50.32 Chronic diastolic (congestive) heart failure; N18.9 Chronic kidney disease, unspecified; M10.9 Gout, unspecified; J44.9 Chronic obstructive pulmonary disease, unspecified; I48.91 Unspecified atrial fibrillation; N39.0 Urinary tract infection, site not specified; B95.7 Other staphylococcus as the cause of diseases classified elsewhere
CPT/HCPCS: 76857; 80053; 81003; 85025; 87040; 87086; 96365; 96366; 96372; 96374; 96375; 99285; G0378; J1650; J2270; J7030